=== PATIENT | male | born 1935 | race Caucasian/White ===

== ENCOUNTER → 2016-06-29 | Outpatient (CLI) | payer OTHER ==
[~2016-06-29] MED LIST: ACETAMINOPHEN-1 EAC1 PO; ACETAMINOPHEN325 M1 PO; ADVAIR 500/501 DISK IH; ADVIL200 MG PO; ALBUTEROL SULF8.5 GM IH; ALLI60 MG PO; ALLOPURINOL300 MG PO; AMLODIPINE BESYL5 MG PO; AQUAPHOR W-NAT50 GM TP; ASCORBIC ACID500 M3 PO; ASPIR 8181 M1 PO; ATORVASTATIN CA80 MG PO; BIOTENE MOISTUR45 ML PO; BUMETANIDE1 M1 PO; BUMETANIDE1 MG PO; BUMETANIDE2 MG PO; CALCITRIOL0.25 MCG PO; CALCIUM MAG PO; CALCIUM MAGNES1 EAC1 PO; CARDIZEM60 MG PO; CATAPRES0.1 MG PO; CENTRUM COMPLE1 EACH PO; CENTRUM SILVER1 EAC3 PO; CLONIDINE HCL0.1 MG PO; CLOPIDOGREL75 MG PO; COZAAR50 MG PO; CYANOCOBALAM1000 MCG PO; DETROL LA4 MG PO; DILAUDID2 MG PO; DOXAZOSIN MESYLA2 MG PO; DOXAZOSIN MESYLA4 MG PO; ELIQUIS5 MG PO; ENOXAPARIN100 MG/1 M SC; ERGOCALCIF50000 UNIT PO; FERROUS SULFAT325 MG PO; FINASTERIDE5 MG PO; FLOMAX0.4 MG PO; FLONASE16 G1 BOTH NARES; FOLIC ACID1 MG PO; HECTOROL0.5 MCG PO; HECTOROL1 MCG PO; HEPARIN SO5000 UNITS SC; HUMALOG100 UNIT/2 SC; HYDROMORPHONE HC2 MG PO; HYDROMORPHONE HC4 MG PO; Hytrin PO; IMODIUM MS REL1 EACH PO; IRON45 MG PO; JANUVIA25 M1 PO; Januvia PO; KLOR-CON 1010 ME1 PO; LANTUS 10100 UNITS/ SC; LANTUS 3 M100 UNITS/ SC; LASIX40 MG PO; LEVAQUIN500 MG PO; LIDOCAINE700 MG TD; LIPITOR80 MG PO; LISINOPRIL20 MG PO; LISINOPRIL40 MG PO; LISINOPRIL5 MG PO; LOSARTAN POTAS100 MG PO; LOSARTAN POTASS50 MG PO; LOVENOX120 MG/0.8 SC; LYRICA50 MG PO; MAG-OXIDE400 MG PO; METAXALONE800 MG PO; METOPROLOL SUCC25 MG PO; METOPROLOL SUCC50 MG PO; METOZOLV ODT5 MG PO; MIRTAZAPINE15 MG PO; MONTELUKAST SOD10 MG PO; NEXIUM20 MG PO; NEXIUM40 MG PO; NOVOLOG PE100 UNITS/ SC; NOVOLOG100 UNIT/3 SQ; PACERONE200 M1 PO; PANCREAZE 10,51 EACH PO; PANTOPRAZOLE SO40 MG PO; PROSCAR5 MG PO; PROTONIX40 MG PO; QUESTRAN PACKET4 GM PO; REGLAN5 MG PO; RHINOCORT AQUA8.6 G1 NS; SERTRALINE HCL25 MG PO; SINGULAIR10 MG PO; SSD25GM TP; Skelaxin PO; TAMSULOSIN HCL0.4 MG PO; TERAZOSIN HCL5 MG PO; THEO-24200 MG PO; THEO-DUR,THEOC200 MG PO; TRAMADOL HCL50 MG PO; Tylenol Regular Stre PO; VESICARE5 MG PO; VITAMIN A8000 UNIT PO; VITAMIN D250000 UNIT PO; WARFARIN SODIUM2 MG PO; WARFARIN SODIUM5 MG PO; ZESTRIL,PRINIVI40 M1 PO; ZESTRIL,PRINIVI40 MG PO; ZOLOFT25 MG PO; ZOLOFT50 M1 PO; ZOLOFT50 MG PO; ZYLOPRIM150 MG PO; Zoloft PO; [UNRECOGNIZED DRUG - CODE] IV
== END | disposition home or self-care (01) ==
DX: R13.10 Dysphagia, unspecified (principal); R06.02 Shortness of breath
CPT/HCPCS: 92611 GN; G8996 GN; G8997 GN; G8998 GN

== ENCOUNTER → 2016-10-05 | Outpatient (CLI) | payer OTHER ==
[~2016-10-05] VITALS: Ht 162.6 cm; Wt 90.7 kg
[~2016-10-05] MED LIST changes: +BUMEX2 MG PO; +NORVASC2.5 MG PO; +PLAVIX75 MG PO; +PROAIR RESPICL90 MCG IH; +REGLAN10 MG PO; +TOPROL XL50 MG PO; +VITAMIN C500 M1 PO; +ZESTRIL5 MG PO
[2016-10-05 12:02] LABS: ANION GAP 9 MEQ/L (2-14); CHLORIDE 106 MEQ/L (99-109); POTASSIUM 4.8 MEQ/L (3.7-5.4); SAMPLE HEMOLYSIS CHECK 0; SAMPLE ICTERIC CHECK 0; SAMPLE LIPEMIA CHECK 0; SODIUM 141 MEQ/L (136-147)
[2016-10-05 12:03] LABS: HEMATOCRIT 37.4 % (38.0-50.0); MCV 90.8 FL (86-99)
[2016-10-05 12:07] LABS: GFR ESTIMATE (CALCULATED) 28 mL/min/; GLUCOSE 149 mg/dL (70-99); UREA NITROGEN (BUN) 45 mg/dL (9-23)
== END | disposition home or self-care (01) ==
LOC: AMB 10:57
PROVIDERS: Anesthesiology
PROC: 0DB38ZX Excision of Lower Esophagus, Via Natural or Artificial Opening Endoscopic, Diagnostic (ICD-10-PCS; principal; 2016-10-05)
DX: K44.9 Diaphragmatic hernia without obstruction or gangrene (principal); R13.12 Dysphagia, oropharyngeal phase; Z79.01 Long term (current) use of anticoagulants; I25.10 Atherosclerotic heart disease of native coronary artery without angina pectoris; K21.9 Gastro-esophageal reflux disease without esophagitis; J44.9 Chronic obstructive pulmonary disease, unspecified; I10 Essential (primary) hypertension; E11.9 Type 2 diabetes mellitus without complications; E66.9 Obesity, unspecified; G47.33 Obstructive sleep apnea (adult) (pediatric); J45.909 Unspecified asthma, uncomplicated; Z79.82 Long term (current) use of aspirin; Z96.653 Presence of artificial knee joint, bilateral; Z99.81 Dependence on supplemental oxygen; Z68.34 Body mass index [BMI] 34.0-34.9, adult
CPT/HCPCS: 80048; 85014; 85018; 88305; 93005; J0360; J2405

== ENCOUNTER 2016-10-18 06:33 | Emergency (ER) | payer OTHER ==
[~2016-10-18] VITALS: Ht 162.6 cm; Wt 95.6 kg
[2016-10-18 07:27] LABS: HEMATOCRIT 36.5 % (38.0-50.0); MCHC 32.1 G/DL (30.0-36.0); MCV 90.3 FL (86-99); MEAN PLAT.VOLUME 10.3 uM^3 (9.0-12.4); PLATELET COUNT 185 K/uL (156-360); RBC DIS.WIDTH-CV 13.4 % (11.8-14.6); RED BLOOD COUNT 4.04 M/uL (4.00-5.50); WHITE BLOOD COUNT 7.2 K/uL (4.1-10.2)
[2016-10-18 07:45] LABS: CHLORIDE 108 mEq/L (99-109); POTASSIUM 5.4 mEq/L (3.7-5.4); SODIUM 141 mEq/L (136-147)
[2016-10-18 07:47] LABS: GLUCOSE 127 mg/dL (70-99)
[2016-10-18 07:48] LABS: ANION GAP 7 MEQ/L (2-14)
[2016-10-18 07:49] LABS: TOTAL BILIRUBIN 0.4 mg/dL (0.0-1.0)
[2016-10-18 07:50] LABS: ALKALINE PHOSPHATASE 83 IU/L (3-129)
[2016-10-18 07:51] LABS: GFR ESTIMATE (CALCULATED) 28 mL/min/
[2016-10-18 07:52] LABS: UREA NITROGEN (BUN) 46 mg/dL (9-23)
[2016-10-18 09:02] LABS: ADD MIUA? YES; BILIRUBIN NEGATIVE; BLOOD NEGATIVE; COLOR STRAW ((YELLOW)); GLUCOSE (STRIP) NEGATIVE; KETONES NEGATIVE; LEUKOCYTES NEGATIVE; NITRITE NEGATIVE; PROTEIN (STRIP) 100; SPECIFIC GRAVITY 1.009 (1.000-1.030); UROBILINOGEN 0.2 MG/DL (0.2-1.0)
[2016-10-18 09:12] LABS: BACTERIA NONE SEEN /HPF; EPITHELIAL CELLS RARE /HPF; HYALINE CASTS 0-5 /LPF; MUCUS NONE SEEN /LPF; RED BLOOD CELLS 0-5 /HPF (0-5); UCUL ADDED? NO; WHITE BLOOD CELLS 0-5 /HPF (0-5)
[2016-10-18 11:02] VITALS: BP 161/88
== END 2016-10-18 11:02 | disposition home or self-care (01) ==
LOC: EME 06:33
DX: K43.9 Ventral hernia without obstruction or gangrene (principal); J45.909 Unspecified asthma, uncomplicated; E11.9 Type 2 diabetes mellitus without complications; E78.5 Hyperlipidemia, unspecified; Z87.442 Personal history of urinary calculi; I25.2 Old myocardial infarction; Z98.61 Coronary angioplasty status
CPT/HCPCS: 74176; 74177; 80053; 81003; 85027; J7030

== ENCOUNTER 2017-07-25 10:12 | Inpatient (IN) | payer OTHER ==
[~2017-07-25] VITALS: Ht 162.6 cm; Wt 99.8 kg
[~2017-07-25 10:12] MED LIST changes: +PROAIR HFA8.5 GM IH; -PROAIR RESPICL90 MCG IH
[2017-07-25 10:40] LABS: BASOPHIL (%) 0.3 % (0-1); EOSINOPHIL (%) 2.5 % (0-5); EOSINOPHIL COUNT 0.3 K/uL (0-0.3); HEMOGLOBIN 12.5 G/DL (12.5-16.6); IMMATURE GRANULOCYTE (%) 0.3 % (0.0-0.7); LYMPHOCYTE (%) 18.8 % (15-42); LYMPHOCYTE COUNT 2.6 K/uL (1.0-2.8); MCHC 32.1 G/DL (30.0-36.0); MCV 90.5 FL (86-99); MONOCYTE (%) 7.1 % (3-12); NEUTROPHIL COUNT 9.7 K/uL (1.8-6.4); PLATELET COUNT 189 K/uL (156-360); RBC DIS.WIDTH-CV 13.5 % (11.8-14.6); RBC DIS.WIDTH-SD 45.3 % (39-53); RED BLOOD COUNT 4.31 M/uL (4.00-5.50); WHITE BLOOD COUNT 13.6 K/uL (4.1-10.2)
[2017-07-25 11:07] LABS: TROP-I INTERPRETATION NEGATIVE; TROPONIN-I 0.04 ng/mL (0.0-0.30)
[2017-07-25 11:13] LABS: CHLORIDE 108 mEq/L (99-109); POTASSIUM 4.4 mEq/L (3.7-5.4); SODIUM 142 mEq/L (136-147)
[2017-07-25 11:14] LABS: GLUCOSE 85 mg/dL (70-99)
[2017-07-25 11:18] LABS: CREATININE 2.4 mg/dL (0.6-1.3); GFR ESTIMATE (CALCULATED) 28 mL/min/ (58.99-99999)
[2017-07-25 11:19] LABS: UREA NITROGEN (BUN) 33 mg/dL (9-23)
[2017-07-25] MEDS ORDERED: CALCITRIOL0.25 MCG PO (13:55)
[2017-07-25] MEDS ORDERED: LANTUS 10100 UNITS/ SC (13:56)
[2017-07-25] MEDS ORDERED: ASPIR-LOW81 MG PO (13:56)
[2017-07-25 15:25] VITALS: BP 206/96
[2017-07-25 15:33] VITALS: BP 206/96
[2017-07-25 17:46] LABS: TROP-I INTERPRETATION NEGATIVE; TROPONIN-I 0.06 ng/mL (0.0-0.30)
[2017-07-25 19:47] VITALS: BP 152/57
[2017-07-25 23:36] LABS: TROP-I INTERPRETATION NEGATIVE; TROPONIN-I 0.04 ng/mL (0.0-0.30)
[2017-07-26 00:11] VITALS: BP 166/67
[2017-07-26 04:49] VITALS: BP 174/72
[2017-07-26 06:27] LABS: ALKALINE PHOSPHATASE 70 IU/L (3-129); ALT (GPT) 8 IU/L (3-49); AST (GOT) 10 IU/L (2-34); CHLORIDE 104 MEQ/L (99-109); CREATININE 2.8 MG/DL (0.6-1.3); GFR ESTIMATE (CALCULATED) 23 mL/min/ (58.99-99999); POTASSIUM 4.3 MEQ/L (3.7-5.4); SODIUM 140 MEQ/L (136-147); TOTAL BILIRUBIN 0.4 MG/DL (0.0-1.0); TOTAL PROTEIN 5.6 G/DL (6.4-8.3); UREA NITROGEN (BUN) 39 mg/dL (9-23)
[2017-07-26 06:28] LABS: GLUCOSE 202 mg/dL (70-99)
[2017-07-26 07:45] VITALS: BP 182/72
[2017-07-26 09:24] LABS: TROP-I INTERPRETATION NEGATIVE; TROPONIN-I 0.03 ng/mL (0.0-0.30)
[2017-07-26 09:25] LABS: BASOPHIL (%) 0.1 % (0-1); EOSINOPHIL (%) 0 % (0-5); HEMATOCRIT 36.7 % (38.0-50.0); HEMOGLOBIN 11.9 G/DL (12.5-16.6); IMMATURE GRANULOCYTE (%) 0.5 % (0.0-0.7); LYMPHOCYTE (%) 6.4 % (15-42); LYMPHOCYTE COUNT 1.1 K/uL (1.0-2.8); MCH 28.7 PG (29.0-34.0); MCHC 32.4 G/DL (30.0-36.0); MCV 88.6 FL (86-99); MONOCYTE (%) 1.6 % (3-12); MONOCYTE COUNT 0.3 K/uL (0-0.8); NEUTROPHIL (%) 91.4 % (45-76); NEUTROPHIL COUNT 15.7 K/uL (1.8-6.4); RBC DIS.WIDTH-CV 13.8 % (11.8-14.6); RED BLOOD COUNT 4.14 M/uL (4.00-5.50); WHITE BLOOD COUNT 17.2 K/uL (4.1-10.2)
[2017-07-26 09:27] LABS: PLATELET COUNT 266 K/uL (156-360)
[2017-07-26 12:39] LABS: HEMATOCRIT 36.3 % (38.0-50.0); HEMOGLOBIN 11.8 G/DL (12.5-16.6); MCV 88.8 FL (86-99)
[2017-07-26 12:41] VITALS: BP 168/62
[2017-07-26 16:00] VITALS: BP 142/62
[2017-07-26 20:07] VITALS: BP 179/75
[2017-07-27] VITALS (7 sets, daily range): BP systolic 134–190; BP diastolic 59–86
[2017-07-27 08:48] LABS: HEMATOCRIT 36.8 % (38.0-50.0); HEMOGLOBIN 11.7 G/DL (12.5-16.6); MCH 28.8 PG (29.0-34.0); MCHC 31.8 G/DL (30.0-36.0); MCV 90.6 FL (86-99); PLATELET COUNT 231 K/uL (156-360); RBC DIS.WIDTH-CV 14.3 % (11.8-14.6); RBC DIS.WIDTH-SD 47.8 % (39-53); RED BLOOD COUNT 4.06 M/uL (4.00-5.50); WHITE BLOOD COUNT 19.9 K/uL (4.1-10.2)
[2017-07-27 09:16] LABS: CHLORIDE 101 MEQ/L (99-109); CREATININE 3.2 MG/DL (0.6-1.3); GFR ESTIMATE (CALCULATED) 20 mL/min/ (58.99-99999); GLUCOSE 223 mg/dL (70-99); POTASSIUM 4.4 MEQ/L (3.7-5.4); SODIUM 140 MEQ/L (136-147); UREA NITROGEN (BUN) 54 mg/dL (9-23)
[2017-07-27 10:26] LABS: TROP-I INTERPRETATION NEGATIVE; TROPONIN-I 0.05 ng/mL (0.0-0.30)
[2017-07-28] VITALS (8 sets, daily range): BP systolic 142–189; BP diastolic 7–78
[2017-07-28 05:51] LABS: HEMATOCRIT 36.1 % (38.0-50.0); HEMOGLOBIN 11.2 G/DL (12.5-16.6); MCV 90.3 FL (86-99); PLATELET COUNT 234 K/uL (156-360); RBC DIS.WIDTH-CV 14.2 % (11.8-14.6); WHITE BLOOD COUNT 19.5 K/uL (4.1-10.2)
[2017-07-28 06:57] LABS: CHLORIDE 101 MEQ/L (99-109); CREATININE 3.4 MG/DL (0.6-1.3); GFR ESTIMATE (CALCULATED) 19 mL/min/ (58.99-99999); GLUCOSE 188 mg/dL (70-99); MAGNESIUM 2.1 mg/dl (1.3-2.7); PHOSPHORUS 4.7 mg/dL (2.5-4.9); SODIUM 139 MEQ/L (136-147); UREA NITROGEN (BUN) 60 mg/dL (9-23)
[2017-07-28 06:58] LABS: POTASSIUM 5.3 MEQ/L (3.7-5.4)
[2017-07-29 04:00] VITALS: BP 150/58
[2017-07-29 05:36] LABS: BASOPHIL (%) 0.1 % (0-1); EOSINOPHIL (%) 0 % (0-5); HEMATOCRIT 33.1 % (38.0-50.0); HEMOGLOBIN 10.6 G/DL (12.5-16.6); IMMATURE GRANULOCYTE (%) 1.1 % (0.0-0.7); LYMPHOCYTE (%) 7.8 % (15-42); MCH 28.6 PG (29.0-34.0); MCV 89.5 FL (86-99); MONOCYTE (%) 8.6 % (3-12); MONOCYTE COUNT 1.1 K/uL (0-0.8); NEUTROPHIL (%) 82.4 % (45-76); PLATELET COUNT 211 K/uL (156-360); RBC DIS.WIDTH-CV 14.2 % (11.8-14.6); RBC DIS.WIDTH-SD 46.5 % (39-53); WHITE BLOOD COUNT 13.3 K/uL (4.1-10.2)
[2017-07-29 06:10] LABS: CHLORIDE 104 MEQ/L (99-109); CREATININE 3.3 MG/DL (0.6-1.3); GFR ESTIMATE (CALCULATED) 19 mL/min/ (58.99-99999); GLUCOSE 145 mg/dL (70-99); SODIUM 141 MEQ/L (136-147); UREA NITROGEN (BUN) 69 mg/dL (9-23)
[2017-07-29 10:05] VITALS: BP 162/65
[2017-07-29 16:04] VITALS: BP 157/66
[2017-07-29 20:21] VITALS: BP 177/79
[2017-07-29 22:19] VITALS: BP 152/66
[2017-07-30] VITALS (7 sets, daily range): BP systolic 157–192; BP diastolic 70–99
[2017-07-30 05:20] LABS: HEMATOCRIT 33.4 % (38.0-50.0); HEMOGLOBIN 10.5 G/DL (12.5-16.6); MCH 28.1 PG (29.0-34.0); MCHC 31.4 G/DL (30.0-36.0); MCV 89.3 FL (86-99); PLATELET COUNT 208 K/uL (156-360); RBC DIS.WIDTH-CV 14.1 % (11.8-14.6); RBC DIS.WIDTH-SD 46.4 % (39-53); RED BLOOD COUNT 3.74 M/uL (4.00-5.50); WHITE BLOOD COUNT 10.6 K/uL (4.1-10.2)
[2017-07-30 05:23] LABS: APPEARANCE CLEAR ((CLEAR)); BILIRUBIN NEGATIVE; BLOOD NEGATIVE; COLOR YELLOW ((YELLOW)); GLUCOSE (STRIP) 50; KETONES NEGATIVE; LEUKOCYTES NEGATIVE; NITRITE NEGATIVE; PROTEIN (STRIP) 100; SPECIFIC GRAVITY 1.013 (1.000-1.030); UROBILINOGEN 0.2 MG/DL (0.2-1.0)
[2017-07-30 05:25] LABS: UR CREATININE CONCENTRATION 82.5 MG/DL
[2017-07-30 05:43] LABS: BACTERIA NONE SEEN /HPF; EPITHELIAL CELLS RARE /HPF; MUCUS TRACE /LPF; RED BLOOD CELLS 0-5 /HPF (0-5); WHITE BLOOD CELLS 0-5 /HPF (0-5)
[2017-07-30 05:47] LABS: CHLORIDE 106 MEQ/L (99-109); CREATININE 3.2 MG/DL (0.6-1.3); GFR ESTIMATE (CALCULATED) 20 mL/min/ (58.99-99999); SODIUM 144 MEQ/L (136-147); UREA NITROGEN (BUN) 70 mg/dL (9-23)
[2017-07-30 05:48] LABS: GLUCOSE 77 mg/dL (70-99)
[2017-07-31 02:38] VITALS: BP 147/66
[2017-07-31 05:55] LABS: BASOPHIL (%) 0.1 % (0-1); EOSINOPHIL (%) 4.3 % (0-5); EOSINOPHIL COUNT 0.4 K/uL (0-0.3); HEMATOCRIT 33.5 % (38.0-50.0); HEMOGLOBIN 10.5 G/DL (12.5-16.6); IMMATURE GRANULOCYTE (%) 0.7 % (0.0-0.7); LYMPHOCYTE (%) 11.8 % (15-42); MCH 28.5 PG (29.0-34.0); MCHC 31.3 G/DL (30.0-36.0); MCV 90.8 FL (86-99); MONOCYTE (%) 7.9 % (3-12); MONOCYTE COUNT 0.7 K/uL (0-0.8); NEUTROPHIL (%) 75.2 % (45-76); NEUTROPHIL COUNT 6.7 K/uL (1.8-6.4); PLATELET COUNT 202 K/uL (156-360); RBC DIS.WIDTH-CV 14.1 % (11.8-14.6); RBC DIS.WIDTH-SD 46.8 % (39-53); RED BLOOD COUNT 3.69 M/uL (4.00-5.50); WHITE BLOOD COUNT 8.8 K/uL (4.1-10.2)
[2017-07-31 06:40] LABS: CHLORIDE 108 MEQ/L (99-109); CREATININE 3.1 MG/DL (0.6-1.3); GFR ESTIMATE (CALCULATED) 21 mL/min/ (58.99-99999); POTASSIUM 4.3 MEQ/L (3.7-5.4); SODIUM 143 MEQ/L (136-147); UREA NITROGEN (BUN) 67 mg/dL (9-23)
[2017-07-31 06:43] LABS: GLUCOSE 145 mg/dL (70-99)
[2017-07-31 08:00] VITALS: BP 166/70
[2017-07-31 16:00] VITALS: BP 183/74
[2017-07-31 16:30] VITALS: BP 168/72
[2017-07-31 20:34] VITALS: BP 192/82
[2017-07-31 22:00] VITALS: BP 159/69
[2017-08-01] VITALS (8 sets, daily range): BP systolic 153–194; BP diastolic 67–79
[2017-08-01 05:59] LABS: BASOPHIL (%) 0.2 % (0-1); EOSINOPHIL (%) 5.3 % (0-5); EOSINOPHIL COUNT 0.5 K/uL (0-0.3); HEMATOCRIT 33.7 % (38.0-50.0); HEMOGLOBIN 10.6 G/DL (12.5-16.6); IMMATURE GRANULOCYTE (%) 1.1 % (0.0-0.7); LYMPHOCYTE (%) 10.4 % (15-42); LYMPHOCYTE COUNT 1.1 K/uL (1.0-2.8); MCH 28.6 PG (29.0-34.0); MCHC 31.5 G/DL (30.0-36.0); MCV 91.1 FL (86-99); MONOCYTE (%) 8.2 % (3-12); MONOCYTE COUNT 0.8 K/uL (0-0.8); NEUTROPHIL (%) 74.8 % (45-76); NEUTROPHIL COUNT 7.7 K/uL (1.8-6.4); PLATELET COUNT 184 K/uL (156-360); RBC DIS.WIDTH-CV 14.2 % (11.8-14.6); RBC DIS.WIDTH-SD 47.8 % (39-53); WHITE BLOOD COUNT 10.2 K/uL (4.1-10.2)
[2017-08-01 06:14] LABS: CHLORIDE 105 MEQ/L (99-109); CREATININE 3.1 MG/DL (0.6-1.3); GFR ESTIMATE (CALCULATED) 21 mL/min/ (58.99-99999); GLUCOSE 140 mg/dL (70-99); POTASSIUM 4.4 MEQ/L (3.7-5.4); SODIUM 140 MEQ/L (136-147); UREA NITROGEN (BUN) 65 mg/dL (9-23)
[2017-08-02 00:08] VITALS: BP 157/71
[2017-08-02 05:09] VITALS: BP 189/85
[2017-08-02 05:45] LABS: BASOPHIL (%) 0.1 % (0-1); EOSINOPHIL (%) 5.4 % (0-5); EOSINOPHIL COUNT 0.5 K/uL (0-0.3); HEMATOCRIT 31.8 % (38.0-50.0); HEMOGLOBIN 10.2 G/DL (12.5-16.6); IMMATURE GRANULOCYTE (%) 0.9 % (0.0-0.7); LYMPHOCYTE (%) 11.2 % (15-42); LYMPHOCYTE COUNT 1.1 K/uL (1.0-2.8); MCHC 32.1 G/DL (30.0-36.0); MCV 90.3 FL (86-99); MONOCYTE (%) 7.5 % (3-12); MONOCYTE COUNT 0.7 K/uL (0-0.8); NEUTROPHIL (%) 74.9 % (45-76); NEUTROPHIL COUNT 7.4 K/uL (1.8-6.4); PLATELET COUNT 163 K/uL (156-360); RBC DIS.WIDTH-CV 14.2 % (11.8-14.6); RBC DIS.WIDTH-SD 46.9 % (39-53); RED BLOOD COUNT 3.52 M/uL (4.00-5.50); WHITE BLOOD COUNT 9.9 K/uL (4.1-10.2)
[2017-08-02 06:07] LABS: CHLORIDE 106 MEQ/L (99-109); CREATININE 2.9 MG/DL (0.6-1.3); GFR ESTIMATE (CALCULATED) 22 mL/min/ (58.99-99999); GLUCOSE 171 mg/dL (70-99); POTASSIUM 4.6 MEQ/L (3.7-5.4); SODIUM 141 MEQ/L (136-147); UREA NITROGEN (BUN) 63 mg/dL (9-23)
[2017-08-02 08:15] VITALS: BP 167/73
[2017-08-02 17:56] VITALS: BP 135/70
[2017-08-03 00:35] VITALS: BP 165/74
[2017-08-03 07:10] LABS: BASOPHIL (%) 0.1 % (0-1); EOSINOPHIL (%) 5.3 % (0-5); EOSINOPHIL COUNT 0.5 K/uL (0-0.3); HEMATOCRIT 31.1 % (38.0-50.0); HEMOGLOBIN 9.8 G/DL (12.5-16.6); IMMATURE GRANULOCYTE (%) 0.9 % (0.0-0.7); LYMPHOCYTE (%) 13.8 % (15-42); LYMPHOCYTE COUNT 1.2 K/uL (1.0-2.8); MCH 28.7 PG (29.0-34.0); MCHC 31.5 G/DL (30.0-36.0); MCV 91.2 FL (86-99); MONOCYTE (%) 8.5 % (3-12); MONOCYTE COUNT 0.7 K/uL (0-0.8); NEUTROPHIL (%) 71.4 % (45-76); NEUTROPHIL COUNT 6.1 K/uL (1.8-6.4); PLATELET COUNT 152 K/uL (156-360); RBC DIS.WIDTH-CV 14.2 % (11.8-14.6); RBC DIS.WIDTH-SD 47.5 % (39-53); RED BLOOD COUNT 3.41 M/uL (4.00-5.50); WHITE BLOOD COUNT 8.5 K/uL (4.1-10.2)
[2017-08-03 07:37] LABS: CHLORIDE 104 MEQ/L (99-109); CREATININE 2.9 MG/DL (0.6-1.3); GFR ESTIMATE (CALCULATED) 22 mL/min/ (58.99-99999); GLUCOSE 149 mg/dL (70-99); POTASSIUM 4.4 MEQ/L (3.7-5.4); SODIUM 138 MEQ/L (136-147); UREA NITROGEN (BUN) 60 mg/dL (9-23)
[2017-08-03 07:44] VITALS: BP 193/80
[2017-08-03 08:15] VITALS: BP 142/70
[2017-08-03 11:15] VITALS: BP 138/70
[2017-08-03 15:48] VITALS: BP 174/74
[2017-08-03 18:06] LABS: HEMATOCRIT 33.4 % (38.0-50.0); HEMOGLOBIN 10.6 G/DL (12.5-16.6)
[2017-08-03 23:17] VITALS: BP 118/63
[2017-08-04 06:34] LABS: HEMOGLOBIN 9.5 G/DL (12.5-16.6); MCV 90.6 FL (86-99)
[2017-08-04 07:19] LABS: CHLORIDE 105 MEQ/L (99-109); GFR ESTIMATE (CALCULATED) 21 mL/min/ (58.99-99999); POTASSIUM 4.4 MEQ/L (3.7-5.4); SODIUM 140 MEQ/L (136-147); UREA NITROGEN (BUN) 56 mg/dL (9-23)
[2017-08-04 07:23] LABS: GLUCOSE 102 mg/dL (70-99)
[2017-08-04 08:00] VITALS: BP 149/65
[2017-08-04 15:40] VITALS: BP 108/71
[2017-08-04 17:41] LABS: HEMATOCRIT 33.4 % (38.0-50.0); HEMOGLOBIN 10.4 G/DL (12.5-16.6); MCV 92.3 FL (86-99)
[2017-08-04 18:00] LABS: CHLORIDE 105 MEQ/L (99-109); MAGNESIUM 1.9 mg/dl (1.3-2.7); POTASSIUM 4.5 MEQ/L (3.7-5.4); SODIUM 139 MEQ/L (136-147)
[2017-08-04 18:05] LABS: CREATININE 2.8 MG/DL (0.6-1.3); GFR ESTIMATE (CALCULATED) 23 mL/min/ (58.99-99999); UREA NITROGEN (BUN) 53 mg/dL (9-23)
[2017-08-04 18:06] LABS: GLUCOSE 188 mg/dL (70-99)
[2017-08-04 19:05] VITALS: BP 112/58
[2017-08-05] VITALS (9 sets, daily range): BP systolic 91–141; BP diastolic 42–89
[2017-08-05 05:27] LABS: BASOPHIL (%) 0.1 % (0-1); EOSINOPHIL (%) 2.9 % (0-5); EOSINOPHIL COUNT 0.2 K/uL (0-0.3); IMMATURE GRANULOCYTE (%) 0.8 % (0.0-0.7); LYMPHOCYTE (%) 12.7 % (15-42); MCH 28.7 PG (29.0-34.0); MCHC 31.3 G/DL (30.0-36.0); MCV 91.7 FL (86-99); MONOCYTE (%) 8.9 % (3-12); MONOCYTE COUNT 0.7 K/uL (0-0.8); NEUTROPHIL (%) 74.6 % (45-76); NEUTROPHIL COUNT 5.7 K/uL (1.8-6.4); PLATELET COUNT 139 K/uL (156-360); RBC DIS.WIDTH-CV 14.4 % (11.8-14.6); RBC DIS.WIDTH-SD 48.5 % (39-53); RED BLOOD COUNT 3.49 M/uL (4.00-5.50); WHITE BLOOD COUNT 7.6 K/uL (4.1-10.2)
[2017-08-05 06:02] LABS: CHLORIDE 105 MEQ/L (99-109); CREATININE 3.1 MG/DL (0.6-1.3); GFR ESTIMATE (CALCULATED) 21 mL/min/ (58.99-99999); GLUCOSE 156 mg/dL (70-99); MAGNESIUM 1.9 mg/dl (1.3-2.7); POTASSIUM 4.5 MEQ/L (3.7-5.4); SODIUM 137 MEQ/L (136-147); UREA NITROGEN (BUN) 53 mg/dL (9-23)
[2017-08-05 18:10] LABS: HEMATOCRIT 30.9 % (38.0-50.0); HEMOGLOBIN 9.7 G/DL (12.5-16.6); MCV 90.1 FL (86-99)
[2017-08-06] VITALS (7 sets, daily range): BP systolic 110–137; BP diastolic 56–74
[2017-08-06 06:17] LABS: BASOPHIL (%) 0.1 % (0-1); EOSINOPHIL (%) 1.9 % (0-5); EOSINOPHIL COUNT 0.2 K/uL (0-0.3); HEMATOCRIT 30.6 % (38.0-50.0); HEMOGLOBIN 9.6 G/DL (12.5-16.6); IMMATURE GRANULOCYTE (%) 0.7 % (0.0-0.7); LYMPHOCYTE (%) 8.6 % (15-42); LYMPHOCYTE COUNT 0.7 K/uL (1.0-2.8); MCH 28.2 PG (29.0-34.0); MCHC 31.4 G/DL (30.0-36.0); MONOCYTE (%) 6.3 % (3-12); MONOCYTE COUNT 0.5 K/uL (0-0.8); NEUTROPHIL (%) 82.4 % (45-76); PLATELET COUNT 138 K/uL (156-360); RBC DIS.WIDTH-CV 14.2 % (11.8-14.6); RBC DIS.WIDTH-SD 46.8 % (39-53); WHITE BLOOD COUNT 8.5 K/uL (4.1-10.2)
[2017-08-06 06:42] LABS: CHLORIDE 103 MEQ/L (99-109); GFR ESTIMATE (CALCULATED) 17 mL/min/ (58.99-99999); GLUCOSE 173 mg/dL (70-99); POTASSIUM 4.6 MEQ/L (3.7-5.4); SODIUM 135 MEQ/L (136-147); UREA NITROGEN (BUN) 53 mg/dL (9-23)
[2017-08-06 06:44] LABS: CREATININE 3.7 MG/DL (0.6-1.3)
[2017-08-06 09:38] LABS: ALBUMIN 2.7 G/DL (3.2-4.8); ALKALINE PHOSPHATASE 61 IU/L (3-129); ALT (GPT) 8 IU/L (3-49); AST (GOT) 10 IU/L (2-34); DIRECT BILIRUBIN 0.1 mg/dL (0.0-0.3); LIPASE 39 U/L (1.0-51.0); TOTAL BILIRUBIN 0.3 MG/DL (0.0-1.0); TOTAL PROTEIN 4.4 G/DL (6.4-8.3)
[2017-08-06 10:07] LABS: TROP-I INTERPRETATION POSITIVE; TROPONIN-I 0.61 ng/mL (0.0-0.30)
[2017-08-06 18:34] LABS: HEMATOCRIT 32.8 % (38.0-50.0); HEMOGLOBIN 10.3 G/DL (12.5-16.6); MCV 91.1 FL (86-99)
[2017-08-07 03:46] VITALS: BP 111/58
[2017-08-07 05:58] LABS: BASOPHIL (%) 0.3 % (0-1); EOSINOPHIL COUNT 0.2 K/uL (0-0.3); HEMOGLOBIN 9.8 G/DL (12.5-16.6); IMMATURE GRANULOCYTE (%) 0.6 % (0.0-0.7); LYMPHOCYTE (%) 14.3 % (15-42); MCH 28.3 PG (29.0-34.0); MCHC 31.6 G/DL (30.0-36.0); MCV 89.6 FL (86-99); MONOCYTE COUNT 0.5 K/uL (0-0.8); NEUTROPHIL (%) 74.8 % (45-76); PLATELET COUNT 151 K/uL (156-360); RBC DIS.WIDTH-CV 14.4 % (11.8-14.6); RBC DIS.WIDTH-SD 46.7 % (39-53); RED BLOOD COUNT 3.46 M/uL (4.00-5.50); WHITE BLOOD COUNT 6.7 K/uL (4.1-10.2)
[2017-08-07 06:09] LABS: CHLORIDE 101 MEQ/L (99-109); GFR ESTIMATE (CALCULATED) 15 mL/min/ (58.99-99999); GLUCOSE 139 mg/dL (70-99); MAGNESIUM 1.9 mg/dl (1.3-2.7); PHOSPHORUS 5.2 mg/dL (2.5-4.9); POTASSIUM 4.6 MEQ/L (3.7-5.4); SODIUM 134 MEQ/L (136-147); UREA NITROGEN (BUN) 55 mg/dL (9-23)
[2017-08-07 08:02] VITALS: BP 107/75
[2017-08-07 11:20] LABS: HEPATITIS B SURFACE ANTIGEN Nonreactive; HEPATITIS C ANTIBODY Nonreactive
[2017-08-07 11:21] LABS: ANTI-HEPATITIS A VIRUS (IGM) Nonreactive
[2017-08-07 11:22] LABS: ANTI-HEPATITIS B CORE (IGM) Nonreactive
[2017-08-07 11:35] VITALS: BP 101/65
[2017-08-07 15:44] VITALS: BP 102/70
[2017-08-07 18:19] LABS: HEMATOCRIT 30.4 % (38.0-50.0); HEMOGLOBIN 9.8 G/DL (12.5-16.6); MCV 89.9 FL (86-99)
[2017-08-07 19:12] VITALS: BP 118/48
[2017-08-07 23:33] VITALS: BP 122/61
[2017-08-08 03:47] VITALS: BP 118/67
[2017-08-08 05:37] LABS: BASOPHIL (%) 0.1 % (0-1); EOSINOPHIL (%) 2.4 % (0-5); EOSINOPHIL COUNT 0.2 K/uL (0-0.3); HEMATOCRIT 29.7 % (38.0-50.0); HEMOGLOBIN 9.5 G/DL (12.5-16.6); IMMATURE GRANULOCYTE (%) 0.5 % (0.0-0.7); LYMPHOCYTE (%) 9.6 % (15-42); MCH 28.4 PG (29.0-34.0); MCV 88.9 FL (86-99); MONOCYTE (%) 6.6 % (3-12); MONOCYTE COUNT 0.7 K/uL (0-0.8); NEUTROPHIL (%) 80.8 % (45-76); NEUTROPHIL COUNT 8.2 K/uL (1.8-6.4); PLATELET COUNT 149 K/uL (156-360); RBC DIS.WIDTH-CV 14.3 % (11.8-14.6); RBC DIS.WIDTH-SD 46.7 % (39-53); RED BLOOD COUNT 3.34 M/uL (4.00-5.50); WHITE BLOOD COUNT 10.2 K/uL (4.1-10.2)
[2017-08-08 06:01] LABS: CHLORIDE 101 MEQ/L (99-109); CREATININE 4.2 MG/DL (0.6-1.3); GFR ESTIMATE (CALCULATED) 15 mL/min/ (58.99-99999); GLUCOSE 159 mg/dL (70-99); POTASSIUM 4.7 MEQ/L (3.7-5.4); SODIUM 132 MEQ/L (136-147); UREA NITROGEN (BUN) 64 mg/dL (9-23)
[2017-08-08 08:04] VITALS: BP 151/80
[2017-08-08 14:05] VITALS: BP 101/76
[2017-08-08 15:10] VITALS: BP 120/71
[2017-08-08 19:38] VITALS: BP 121/73
[2017-08-08 20:16] LABS: HEMATOCRIT 30.8 % (38.0-50.0); HEMOGLOBIN 10.1 G/DL (12.5-16.6); MCV 89.8 FL (86-99)
[2017-08-08 23:34] VITALS: BP 122/62
[2017-08-09 03:29] VITALS: BP 103/71
[2017-08-09 05:43] LABS: BASOPHIL (%) 0 % (0-1); EOSINOPHIL (%) 0 % (0-5); HEMATOCRIT 28.5 % (38.0-50.0); HEMOGLOBIN 9.1 G/DL (12.5-16.6); IMMATURE GRANULOCYTE (%) 0.8 % (0.0-0.7); LYMPHOCYTE (%) 5.3 % (15-42); LYMPHOCYTE COUNT 0.4 K/uL (1.0-2.8); MCH 28.4 PG (29.0-34.0); MCHC 31.9 G/DL (30.0-36.0); MCV 89.1 FL (86-99); MONOCYTE (%) 1.7 % (3-12); MONOCYTE COUNT 0.1 K/uL (0-0.8); NEUTROPHIL (%) 92.2 % (45-76); NEUTROPHIL COUNT 6.9 K/uL (1.8-6.4); PLATELET COUNT 160 K/uL (156-360); RBC DIS.WIDTH-CV 14.3 % (11.8-14.6); WHITE BLOOD COUNT 7.5 K/uL (4.1-10.2)
[2017-08-09 06:12] LABS: CHLORIDE 100 MEQ/L (99-109); CREATININE 4.5 MG/DL (0.6-1.3); GFR ESTIMATE (CALCULATED) 13 mL/min/ (58.99-99999); GLUCOSE 245 mg/dL (70-99); POTASSIUM 5.2 MEQ/L (3.7-5.4); SODIUM 130 MEQ/L (136-147); UREA NITROGEN (BUN) 71 mg/dL (9-23)
[2017-08-09 07:11] VITALS: BP 119/70
[2017-08-09 12:45] VITALS: BP 120/72
[2017-08-09 16:50] VITALS: BP 115/72
[2017-08-09 19:11] LABS: HEMATOCRIT 29.6 % (38.0-50.0); HEMOGLOBIN 9.6 G/DL (12.5-16.6); MCV 88.4 FL (86-99)
[2017-08-09 19:25] VITALS: BP 104/61
[2017-08-09 23:42] VITALS: BP 117/69
[2017-08-10] VITALS (7 sets, daily range): BP systolic 08–134; BP diastolic 52–78
[2017-08-10 06:24] LABS: BASOPHIL (%) 0.1 % (0-1); EOSINOPHIL (%) 0 % (0-5); HEMATOCRIT 29.1 % (38.0-50.0); HEMOGLOBIN 9.2 G/DL (12.5-16.6); IMMATURE GRANULOCYTE (%) 0.5 % (0.0-0.7); LYMPHOCYTE (%) 8.5 % (15-42); MCHC 31.6 G/DL (30.0-36.0); MCV 88.7 FL (86-99); MONOCYTE (%) 6.9 % (3-12); MONOCYTE COUNT 0.8 K/uL (0-0.8); NEUTROPHIL COUNT 9.9 K/uL (1.8-6.4); PLATELET COUNT 175 K/uL (156-360); RBC DIS.WIDTH-CV 14.6 % (11.8-14.6); RED BLOOD COUNT 3.28 M/uL (4.00-5.50); WHITE BLOOD COUNT 11.8 K/uL (4.1-10.2)
[2017-08-10 06:58] LABS: CHLORIDE 100 MEQ/L (99-109); GFR ESTIMATE (CALCULATED) 15 mL/min/ (58.99-99999); POTASSIUM 4.6 MEQ/L (3.7-5.4); SODIUM 134 MEQ/L (136-147); UREA NITROGEN (BUN) 51 mg/dL (9-23)
[2017-08-10 07:07] LABS: GLUCOSE 117 mg/dL (70-99)
[2017-08-10 19:03] LABS: HEMATOCRIT 26.7 % (38.0-50.0); HEMOGLOBIN 8.6 G/DL (12.5-16.6); MCV 88.1 FL (86-99)
[2017-08-11] VITALS (7 sets, daily range): BP systolic 99–154; BP diastolic 53–68
[2017-08-11 06:23] LABS: BASOPHIL (%) 0.2 % (0-1); EOSINOPHIL (%) 0.5 % (0-5); EOSINOPHIL COUNT 0.1 K/uL (0-0.3); HEMATOCRIT 29.1 % (38.0-50.0); HEMOGLOBIN 9.1 G/DL (12.5-16.6); IMMATURE GRANULOCYTE (%) 0.4 % (0.0-0.7); LYMPHOCYTE (%) 7.8 % (15-42); LYMPHOCYTE COUNT 0.8 K/uL (1.0-2.8); MCH 28.2 PG (29.0-34.0); MCHC 31.3 G/DL (30.0-36.0); MCV 90.1 FL (86-99); MONOCYTE (%) 8.1 % (3-12); MONOCYTE COUNT 0.8 K/uL (0-0.8); NEUTROPHIL COUNT 8.6 K/uL (1.8-6.4); PLATELET COUNT 143 K/uL (156-360); RBC DIS.WIDTH-CV 14.7 % (11.8-14.6); RBC DIS.WIDTH-SD 48.3 % (39-53); RED BLOOD COUNT 3.23 M/uL (4.00-5.50); WHITE BLOOD COUNT 10.3 K/uL (4.1-10.2)
[2017-08-11 06:56] LABS: CHLORIDE 102 MEQ/L (99-109); GFR ESTIMATE (CALCULATED) 19 mL/min/ (58.99-99999); GLUCOSE 135 mg/dL (70-99); POTASSIUM 4.2 MEQ/L (3.7-5.4); SODIUM 137 MEQ/L (136-147); UREA NITROGEN (BUN) 37 mg/dL (9-23)
[2017-08-11 07:00] LABS: CREATININE 3.3 MG/DL (0.6-1.3)
[2017-08-11 18:11] LABS: HEMATOCRIT 28.2 % (38.0-50.0); MCV 90.1 FL (86-99)
[2017-08-12 05:00] VITALS: BP 124/87
[2017-08-12 05:34] LABS: HEMATOCRIT 29.3 % (38.0-50.0); HEMOGLOBIN 9.1 G/DL (12.5-16.6)
[2017-08-12 09:24] VITALS: BP 132/68
[2017-08-12 10:49] LABS: CHLORIDE 99 MEQ/L (99-109); GFR ESTIMATE (CALCULATED) 15 mL/min/ (58.99-99999); GLUCOSE 222 mg/dL (70-99); SODIUM 135 MEQ/L (136-147); UREA NITROGEN (BUN) 51 mg/dL (9-23)
[2017-08-12 12:42] VITALS: BP 108/64
[2017-08-12 17:07] VITALS: BP 132/67
[2017-08-12 17:46] LABS: HEMATOCRIT 28.3 % (38.0-50.0); HEMOGLOBIN 8.8 G/DL (12.5-16.6); MCV 92.8 FL (86-99)
[2017-08-12 19:54] VITALS: BP 114/68
[2017-08-13] VITALS (8 sets, daily range): BP systolic 90–149; BP diastolic 55–83
[2017-08-13 05:35] LABS: BASOPHIL (%) 0.4 % (0-1); EOSINOPHIL (%) 1.4 % (0-5); EOSINOPHIL COUNT 0.1 K/uL (0-0.3); HEMATOCRIT 26.5 % (38.0-50.0); HEMOGLOBIN 8.1 G/DL (12.5-16.6); IMMATURE GRANULOCYTE (%) 0.4 % (0.0-0.7); LYMPHOCYTE (%) 9.2 % (15-42); LYMPHOCYTE COUNT 0.9 K/uL (1.0-2.8); MCH 27.9 PG (29.0-34.0); MCHC 30.6 G/DL (30.0-36.0); MCV 91.4 FL (86-99); MONOCYTE (%) 7.7 % (3-12); MONOCYTE COUNT 0.7 K/uL (0-0.8); NEUTROPHIL (%) 80.9 % (45-76); NEUTROPHIL COUNT 7.8 K/uL (1.8-6.4); PLATELET COUNT 138 K/uL (156-360); RBC DIS.WIDTH-CV 15.1 % (11.8-14.6); RBC DIS.WIDTH-SD 50.1 % (39-53); WHITE BLOOD COUNT 9.6 K/uL (4.1-10.2)
[2017-08-13 05:55] LABS: CHLORIDE 99 MEQ/L (99-109); CREATININE 4.6 MG/DL (0.6-1.3); GFR ESTIMATE (CALCULATED) 13 mL/min/ (58.99-99999); GLUCOSE 136 mg/dL (70-99); POTASSIUM 4.4 MEQ/L (3.7-5.4); SODIUM 133 MEQ/L (136-147); UREA NITROGEN (BUN) 55 mg/dL (9-23)
[2017-08-13 17:51] LABS: HEMATOCRIT 26.5 % (38.0-50.0); HEMOGLOBIN 8.2 G/DL (12.5-16.6); MCV 90.8 FL (86-99)
[2017-08-14] VITALS (11 sets, daily range): BP systolic 72–134; BP diastolic 42–76
[2017-08-14 05:14] LABS: BASOPHIL (%) 0.4 % (0-1); EOSINOPHIL (%) 1.3 % (0-5); EOSINOPHIL COUNT 0.1 K/uL (0-0.3); HEMATOCRIT 25.8 % (38.0-50.0); IMMATURE GRANULOCYTE (%) 0.6 % (0.0-0.7); LYMPHOCYTE (%) 10.8 % (15-42); LYMPHOCYTE COUNT 0.8 K/uL (1.0-2.8); MCH 28.4 PG (29.0-34.0); MCV 91.5 FL (86-99); MONOCYTE (%) 10.3 % (3-12); MONOCYTE COUNT 0.8 K/uL (0-0.8); NEUTROPHIL (%) 76.6 % (45-76); PLATELET COUNT 131 K/uL (156-360); RBC DIS.WIDTH-SD 49.8 % (39-53); RED BLOOD COUNT 2.82 M/uL (4.00-5.50); WHITE BLOOD COUNT 7.8 K/uL (4.1-10.2)
[2017-08-14 05:29] LABS: CHLORIDE 101 MEQ/L (99-109); GFR ESTIMATE (CALCULATED) 19 mL/min/ (58.99-99999); GLUCOSE 173 mg/dL (70-99); POTASSIUM 4.4 MEQ/L (3.7-5.4); SODIUM 135 MEQ/L (136-147); UREA NITROGEN (BUN) 36 mg/dL (9-23)
[2017-08-14 05:34] LABS: CREATININE 3.4 MG/DL (0.6-1.3)
[2017-08-14 18:24] LABS: HEMATOCRIT 25.4 % (38.0-50.0); MCV 91.7 FL (86-99)
[2017-08-15] VITALS (7 sets, daily range): BP systolic 91–157; BP diastolic 56–79
[2017-08-15 05:06] LABS: BASOPHIL (%) 0.3 % (0-1); EOSINOPHIL (%) 2.4 % (0-5); EOSINOPHIL COUNT 0.2 K/uL (0-0.3); HEMATOCRIT 24.7 % (38.0-50.0); IMMATURE GRANULOCYTE (%) 0.6 % (0.0-0.7); LYMPHOCYTE COUNT 0.7 K/uL (1.0-2.8); MCH 29.4 PG (29.0-34.0); MCHC 32.4 G/DL (30.0-36.0); MCV 90.8 FL (86-99); MONOCYTE (%) 9.4 % (3-12); MONOCYTE COUNT 0.6 K/uL (0-0.8); NEUTROPHIL (%) 77.3 % (45-76); NEUTROPHIL COUNT 5.2 K/uL (1.8-6.4); PLATELET COUNT 120 K/uL (156-360); RBC DIS.WIDTH-CV 15.2 % (11.8-14.6); RBC DIS.WIDTH-SD 49.9 % (39-53); RED BLOOD COUNT 2.72 M/uL (4.00-5.50); WHITE BLOOD COUNT 6.7 K/uL (4.1-10.2)
[2017-08-15 05:19] LABS: CHLORIDE 102 mEq/L (99-109); POTASSIUM 4.5 mEq/L (3.7-5.4); SODIUM 134 mEq/L (136-147)
[2017-08-15 05:21] LABS: GLUCOSE 171 mg/dL (70-99)
[2017-08-15 05:25] LABS: CREATININE 3.9 mg/dL (0.6-1.3); GFR ESTIMATE (CALCULATED) 16 mL/min/ (58.99-99999)
[2017-08-15 05:26] LABS: UREA NITROGEN (BUN) 49 mg/dL (9-23)
[2017-08-15 16:59] LABS: STOOL OCCULT BLD 1ST SPECIMEN POSITIVE
[2017-08-15 17:04] LABS: BASOPHIL (%) 0.2 % (0-1); EOSINOPHIL (%) 1.9 % (0-5); EOSINOPHIL COUNT 0.1 K/uL (0-0.3); HEMATOCRIT 24.9 % (38.0-50.0); HEMOGLOBIN 7.8 G/DL (12.5-16.6); IMMATURE GRANULOCYTE (%) 0.4 % (0.0-0.7); LYMPHOCYTE (%) 8.6 % (15-42); LYMPHOCYTE COUNT 0.5 K/uL (1.0-2.8); MCH 28.4 PG (29.0-34.0); MCHC 31.3 G/DL (30.0-36.0); MCV 90.5 FL (86-99); MONOCYTE (%) 8.8 % (3-12); MONOCYTE COUNT 0.5 K/uL (0-0.8); NEUTROPHIL (%) 80.1 % (45-76); NEUTROPHIL COUNT 4.5 K/uL (1.8-6.4); PLATELET COUNT 111 K/uL (156-360); RBC DIS.WIDTH-CV 15.1 % (11.8-14.6); RBC DIS.WIDTH-SD 49.7 % (39-53); RED BLOOD COUNT 2.75 M/uL (4.00-5.50); WHITE BLOOD COUNT 5.7 K/uL (4.1-10.2)
[2017-08-15 17:05] LABS: HEMATOCRIT 24.8 % (38.0-50.0); HEMOGLOBIN 7.8 G/DL (12.5-16.6); MCV 90.8 FL (86-99)
[2017-08-16 04:32] VITALS: BP 136/74
[2017-08-16 06:07] LABS: BASOPHIL (%) 0.3 % (0-1); EOSINOPHIL (%) 3.5 % (0-5); EOSINOPHIL COUNT 0.2 K/uL (0-0.3); HEMATOCRIT 25.3 % (38.0-50.0); HEMOGLOBIN 7.9 G/DL (12.5-16.6); IMMATURE GRANULOCYTE (%) 0.5 % (0.0-0.7); LYMPHOCYTE (%) 11.7 % (15-42); LYMPHOCYTE COUNT 0.7 K/uL (1.0-2.8); MCH 28.4 PG (29.0-34.0); MCHC 31.2 G/DL (30.0-36.0); MONOCYTE (%) 10.8 % (3-12); MONOCYTE COUNT 0.6 K/uL (0-0.8); NEUTROPHIL (%) 73.2 % (45-76); NEUTROPHIL COUNT 4.2 K/uL (1.8-6.4); NRBC (%) 0.3 /100 WBC (0-0); PLATELET COUNT 133 K/uL (156-360); RBC DIS.WIDTH-SD 50.2 % (39-53); RED BLOOD COUNT 2.78 M/uL (4.00-5.50); WHITE BLOOD COUNT 5.7 K/uL (4.1-10.2)
[2017-08-16 06:33] LABS: CHLORIDE 100 MEQ/L (99-109); GFR ESTIMATE (CALCULATED) 21 mL/min/ (58.99-99999); GLUCOSE 132 mg/dL (70-99); POTASSIUM 4.4 MEQ/L (3.7-5.4); SODIUM 134 MEQ/L (136-147); UREA NITROGEN (BUN) 30 mg/dL (9-23)
[2017-08-16 06:35] LABS: CREATININE 3.1 MG/DL (0.6-1.3)
[2017-08-16 07:08] VITALS: BP 132/99
[2017-08-16 11:22] VITALS: BP 124/82
[2017-08-16 17:00] VITALS: BP 126/82
[2017-08-16 17:51] LABS: HEMATOCRIT 25.3 % (38.0-50.0); HEMOGLOBIN 7.9 G/DL (12.5-16.6)
[2017-08-17] VITALS: BP 115/59
[2017-08-17 04:21] VITALS: BP 106/62
[2017-08-17 04:50] LABS: BASOPHIL (%) 0.6 % (0-1); EOSINOPHIL (%) 4.1 % (0-5); EOSINOPHIL COUNT 0.2 K/uL (0-0.3); HEMATOCRIT 26.6 % (38.0-50.0); HEMOGLOBIN 8.4 G/DL (12.5-16.6); IMMATURE GRANULOCYTE (%) 0.6 % (0.0-0.7); LYMPHOCYTE (%) 12.4 % (15-42); LYMPHOCYTE COUNT 0.6 K/uL (1.0-2.8); MCHC 31.6 G/DL (30.0-36.0); MCV 91.7 FL (86-99); MONOCYTE (%) 10.8 % (3-12); MONOCYTE COUNT 0.6 K/uL (0-0.8); NEUTROPHIL (%) 71.5 % (45-76); NEUTROPHIL COUNT 3.7 K/uL (1.8-6.4); PLATELET COUNT 137 K/uL (156-360); RBC DIS.WIDTH-CV 15.1 % (11.8-14.6); RBC DIS.WIDTH-SD 50.5 % (39-53); WHITE BLOOD COUNT 5.1 K/uL (4.1-10.2)
[2017-08-17 05:03] LABS: ALBUMIN 2.6 g/dL (3.2-4.8)
[2017-08-17 05:04] LABS: CHLORIDE 102 mEq/L (99-109); POTASSIUM 4.7 mEq/L (3.7-5.4); SODIUM 133 mEq/L (136-147)
[2017-08-17 05:06] LABS: GLUCOSE 133 mg/dL (70-99)
[2017-08-17 05:09] LABS: GFR ESTIMATE (CALCULATED) 17 mL/min/ (58.99-99999); PHOSPHORUS 3.8 mg/dL (2.5-4.9)
[2017-08-17 05:10] LABS: UREA NITROGEN (BUN) 40 mg/dL (9-23)
[2017-08-17 05:20] LABS: CREATININE 3.7 mg/dL (0.6-1.3)
[2017-08-17 06:56] VITALS: BP 105/67
[2017-08-17 12:32] VITALS: BP 121/64
[2017-08-17 19:31] VITALS: BP 98/55
[2017-08-17 19:47] LABS: HEMATOCRIT 26.7 % (38.0-50.0); HEMOGLOBIN 8.3 G/DL (12.5-16.6); MCV 90.8 FL (86-99)
[2017-08-17 23:47] VITALS: BP 132/69
[2017-08-18 05:44] LABS: BASOPHIL (%) 0.4 % (0-1); EOSINOPHIL (%) 3.7 % (0-5); EOSINOPHIL COUNT 0.2 K/uL (0-0.3); HEMATOCRIT 27.8 % (38.0-50.0); HEMOGLOBIN 8.5 G/DL (12.5-16.6); IMMATURE GRANULOCYTE (%) 0.6 % (0.0-0.7); LYMPHOCYTE (%) 14.6 % (15-42); LYMPHOCYTE COUNT 0.7 K/uL (1.0-2.8); MCH 28.5 PG (29.0-34.0); MCHC 30.6 G/DL (30.0-36.0); MCV 93.3 FL (86-99); MONOCYTE (%) 12.8 % (3-12); MONOCYTE COUNT 0.6 K/uL (0-0.8); NEUTROPHIL (%) 67.9 % (45-76); NEUTROPHIL COUNT 3.3 K/uL (1.8-6.4); PLATELET COUNT 147 K/uL (156-360); RBC DIS.WIDTH-CV 15.4 % (11.8-14.6); RBC DIS.WIDTH-SD 51.9 % (39-53); RED BLOOD COUNT 2.98 M/uL (4.00-5.50); WHITE BLOOD COUNT 4.9 K/uL (4.1-10.2)
[2017-08-18 06:17] LABS: CHLORIDE 102 MEQ/L (99-109); GFR ESTIMATE (CALCULATED) 21 mL/min/ (58.99-99999); GLUCOSE 119 mg/dL (70-99); POTASSIUM 4.7 MEQ/L (3.7-5.4); SODIUM 137 MEQ/L (136-147); UREA NITROGEN (BUN) 24 mg/dL (9-23)
[2017-08-18 07:55] VITALS: BP 103/63
[2017-08-18 12:16] VITALS: BP 103/62
[2017-08-18 16:06] VITALS: BP 108/57
[2017-08-18 18:40] LABS: HEMOGLOBIN 8.5 G/DL (12.5-16.6)
[2017-08-18 20:00] VITALS: BP 113/59
[2017-08-18 23:55] VITALS: BP 132/75
[2017-08-19] VITALS (7 sets, daily range): BP systolic 87–112; BP diastolic 50–69
[2017-08-19 05:10] LABS: BASOPHIL (%) 0.5 % (0-1); EOSINOPHIL (%) 3.3 % (0-5); EOSINOPHIL COUNT 0.2 K/uL (0-0.3); HEMATOCRIT 26.6 % (38.0-50.0); IMMATURE GRANULOCYTE (%) 0.6 % (0.0-0.7); LYMPHOCYTE (%) 13.5 % (15-42); LYMPHOCYTE COUNT 0.9 K/uL (1.0-2.8); MCHC 30.1 G/DL (30.0-36.0); MONOCYTE (%) 10.3 % (3-12); MONOCYTE COUNT 0.7 K/uL (0-0.8); NEUTROPHIL (%) 71.8 % (45-76); NEUTROPHIL COUNT 4.6 K/uL (1.8-6.4); PLATELET COUNT 169 K/uL (156-360); RBC DIS.WIDTH-CV 15.4 % (11.8-14.6); RBC DIS.WIDTH-SD 52.2 % (39-53); RED BLOOD COUNT 2.86 M/uL (4.00-5.50); WHITE BLOOD COUNT 6.4 K/uL (4.1-10.2)
[2017-08-19 06:07] LABS: CHLORIDE 98 MEQ/L (99-109); GFR ESTIMATE (CALCULATED) 15 mL/min/ (58.99-99999); GLUCOSE 103 mg/dL (70-99); IRON 17 MCG/DL (35-150); POTASSIUM 4.4 MEQ/L (3.7-5.4); SODIUM 137 MEQ/L (136-147); TRANSFERRIN (TIBC) 148.8 mg/dL (215-380); TRANSFERRIN SATUR. 11 % (20-55); UREA NITROGEN (BUN) 33 mg/dL (9-23)
[2017-08-19 06:08] LABS: CREATININE 4.1 MG/DL (0.6-1.3)
[2017-08-19 17:45] LABS: HEMATOCRIT 27.3 % (38.0-50.0); HEMOGLOBIN 8.3 G/DL (12.5-16.6); MCV 94.1 FL (86-99)
[2017-08-20] VITALS (7 sets, daily range): BP systolic 83–120; BP diastolic 47–87
[2017-08-20 09:09] LABS: CHLORIDE 102 MEQ/L (99-109); GFR ESTIMATE (CALCULATED) 11 mL/min/ (58.99-99999); POTASSIUM 4.4 MEQ/L (3.7-5.4); SODIUM 136 MEQ/L (136-147); UREA NITROGEN (BUN) 41 mg/dL (9-23)
[2017-08-20 09:17] LABS: CREATININE 5.2 MG/DL (0.6-1.3); GLUCOSE 161 mg/dL (70-99)
[2017-08-20 09:24] LABS: HEMATOCRIT 27.8 % (38.0-50.0); HEMOGLOBIN 8.3 G/DL (12.5-16.6); MCH 27.9 PG (29.0-34.0); MCHC 29.9 G/DL (30.0-36.0); MCV 93.6 FL (86-99); RBC DIS.WIDTH-CV 15.8 % (11.8-14.6); RED BLOOD COUNT 2.97 M/uL (4.00-5.50); WHITE BLOOD COUNT 6.3 K/uL (4.1-10.2)
[2017-08-20 09:26] LABS: HEMATOCRIT 27.8 % (38.0-50.0); HEMOGLOBIN 8.3 G/DL (12.5-16.6); MCV 93.6 FL (86-99)
[2017-08-20 10:44] LABS: BASOPHIL (%) 0.5 % (0-1); EOSINOPHIL (%) 4.8 % (0-5); EOSINOPHIL COUNT 0.3 K/uL (0-0.3); IMMATURE GRANULOCYTE (%) 0.6 % (0.0-0.7); LYMPHOCYTE (%) 12.4 % (15-42); LYMPHOCYTE COUNT 0.8 K/uL (1.0-2.8); MONOCYTE (%) 7.6 % (3-12); MONOCYTE COUNT 0.5 K/uL (0-0.8); NEUTROPHIL (%) 74.1 % (45-76); NEUTROPHIL COUNT 4.7 K/uL (1.8-6.4)
[2017-08-20 12:00] LABS: PLAT.SUFFICIENCY ADEQUATE; PLATELET COUNT 162 K/uL (156-360)
[2017-08-21 04:00] VITALS: BP 98/55
[2017-08-21 05:34] LABS: BASOPHIL (%) 0.5 % (0-1); EOSINOPHIL (%) 4.1 % (0-5); EOSINOPHIL COUNT 0.3 K/uL (0-0.3); HEMATOCRIT 29.5 % (38.0-50.0); HEMOGLOBIN 8.8 G/DL (12.5-16.6); IMMATURE GRANULOCYTE (%) 0.9 % (0.0-0.7); LYMPHOCYTE (%) 17.6 % (15-42); LYMPHOCYTE COUNT 1.2 K/uL (1.0-2.8); MCH 27.8 PG (29.0-34.0); MCHC 29.8 G/DL (30.0-36.0); MCV 93.1 FL (86-99); MONOCYTE (%) 9.8 % (3-12); MONOCYTE COUNT 0.7 K/uL (0-0.8); NEUTROPHIL (%) 67.1 % (45-76); NEUTROPHIL COUNT 4.5 K/uL (1.8-6.4); PLATELET COUNT 160 K/uL (156-360); RBC DIS.WIDTH-CV 15.4 % (11.8-14.6); RBC DIS.WIDTH-SD 52.4 % (39-53); RED BLOOD COUNT 3.17 M/uL (4.00-5.50); WHITE BLOOD COUNT 6.7 K/uL (4.1-10.2)
[2017-08-21 06:07] LABS: CHLORIDE 101 MEQ/L (99-109); CREATININE 3.7 MG/DL (0.6-1.3); GFR ESTIMATE (CALCULATED) 17 mL/min/ (58.99-99999); GLUCOSE 152 mg/dL (70-99); POTASSIUM 4.8 MEQ/L (3.7-5.4); SODIUM 135 MEQ/L (136-147); UREA NITROGEN (BUN) 27 mg/dL (9-23)
[2017-08-21 08:18] VITALS: BP 104/57
== END 2017-08-21 10:04 | disposition designated cancer center or children's hospital, planned readmission (85) | DRG 189 ==
LOC: EME 10:12 → EDOF 12:04 → 5SOUTH 12:04 → 4EAST 12:04 → ENRESERV 12:05 → 4EAST 15:11 → ENRESERV 08-01 15:41 → 5SOUTH 08-01 17:56 → ENRESERV 08-04 15:47 → 4EAST 08-04 16:31
PROVIDERS: Emergency Medicine; Family Medicine; Hospitalist; Internal Medicine; Internal Medicine Cardiovascular Disease; Internal Medicine Nephrology; Physician Assistant
PROC: 5A09357 Assistance with Respiratory Ventilation, Less than 24 Consecutive Hours, Continuous Positive Airway Pressure (ICD-10-PCS; principal; 2017-07-25)
PROC: 0JHD3WZ Insertion of Totally Implantable Vascular Access Device into Right Upper Arm Subcutaneous Tissue and Fascia, Percutaneous Approach (ICD-10-PCS; 2017-08-08)
PROC: 4A023N7 Measurement of Cardiac Sampling and Pressure, Left Heart, Percutaneous Approach (ICD-10-PCS; 2017-08-08)
PROC: 02HV33Z Insertion of Infusion Device into Superior Vena Cava, Percutaneous Approach (ICD-10-PCS; 2017-08-08)
PROC: B2151ZZ Fluoroscopy of Left Heart using Low Osmolar Contrast (ICD-10-PCS; 2017-08-08)
PROC: B549ZZA Ultrasonography of Inferior Vena Cava, Guidance (ICD-10-PCS; 2017-08-08)
PROC: B2111ZZ Fluoroscopy of Multiple Coronary Arteries using Low Osmolar Contrast (ICD-10-PCS; 2017-08-08)
PROC: B5181ZA Fluoroscopy of Superior Vena Cava using Low Osmolar Contrast, Guidance (ICD-10-PCS; 2017-08-08)
PROC: 5A1D70Z Performance of Urinary Filtration, Intermittent, Less than 6 Hours Per Day (ICD-10-PCS; 2017-08-09)
PROC: 0DJ08ZZ Inspection of Upper Intestinal Tract, Via Natural or Artificial Opening Endoscopic (ICD-10-PCS; 2017-08-09)
DX: J96.01 Acute respiratory failure with hypoxia (principal); J18.9 Pneumonia, unspecified organism; N18.6 End stage renal disease; I21.4 Non-ST elevation (NSTEMI) myocardial infarction; J44.1 Chronic obstructive pulmonary disease with (acute) exacerbation; J44.0 Chronic obstructive pulmonary disease with (acute) lower respiratory infection; J98.11 Atelectasis; N17.9 Acute kidney failure, unspecified; K92.0 Hematemesis; K22.10 Ulcer of esophagus without bleeding; E87.2 Acidosis; I13.2 Hypertensive heart and chronic kidney disease with heart failure and with stage 5 chronic kidney disease, or end stage renal disease; K92.1 Melena; I25.10 Atherosclerotic heart disease of native coronary artery without angina pectoris; I48.0 Paroxysmal atrial fibrillation; I48.2 Chronic atrial fibrillation; N40.1 Benign prostatic hyperplasia with lower urinary tract symptoms; R33.8 Other retention of urine; K59.00 Constipation, unspecified; G47.33 Obstructive sleep apnea (adult) (pediatric); I27.20 Pulmonary hypertension, unspecified; D63.1 Anemia in chronic kidney disease; D50.0 Iron deficiency anemia secondary to blood loss (chronic); E11.21 Type 2 diabetes mellitus with diabetic nephropathy; E11.22 Type 2 diabetes mellitus with diabetic chronic kidney disease; E11.51 Type 2 diabetes mellitus with diabetic peripheral angiopathy without gangrene; E11.65 Type 2 diabetes mellitus with hyperglycemia; E66.01 Morbid (severe) obesity due to excess calories; E78.5 Hyperlipidemia, unspecified; E83.51 Hypocalcemia; I49.3 Ventricular premature depolarization; I77.1 Stricture of artery; Z96.653 Presence of artificial knee joint, bilateral; Z91.041 Radiographic dye allergy status; Z87.442 Personal history of urinary calculi; Z86.718 Personal history of other venous thrombosis and embolism; Z79.82 Long term (current) use of aspirin; Z79.4 Long term (current) use of insulin; I25.2 Old myocardial infarction; Z87.891 Personal history of nicotine dependence; Z99.2 Dependence on renal dialysis; Z75.1 Person awaiting admission to adequate facility elsewhere; Z68.37 Body mass index [BMI] 37.0-37.9, adult; Z90.79 Acquired absence of other genital organ(s); Z95.2 Presence of prosthetic heart valve; Z95.5 Presence of coronary angioplasty implant and graft; Z79.51 Long term (current) use of inhaled steroids; Z82.49 Family history of ischemic heart disease and other diseases of the circulatory system; I50.23 Acute on chronic systolic (congestive) heart failure
CPT/HCPCS: 71045; 73700; 74019; 74022; 74176; 76770; 80048; 80048 91; 80053; 80069; 80074; 80076; 81003; 82272; 82330; 82570; 82575; 82948; 83540; 83690; 83735; 83880; 84100; 84156; 84466; 84484; 84550; 85014; 85018; 85025; 85025 91; 85027; 85610; 85730; 92526 GN; 92610 GN; 93005; 93306; 93971; 94010; 94640; 94640 76; 94660; 94664; 94760; 94799; 97530 GP; 99202; 99281; 99285; C1750; C1760; C1769; C1894; C9113; J0360; J0610; J0690; J0881; J1200; J1644; J1756; J1815; J1940; J2250; J2270; J2405; J2765; J2920; J2930; J3010; J7030; J7040; J7050; J7512; S0020

== ENCOUNTER 2017-10-11 13:24 | Outpatient (CLI) | payer OTHER ==
[~2017-10-11 13:24] MED LIST changes: +ASPIR-LOW81 MG PO
[2017-10-16] MEDS ORDERED: TYLENOL REGULA325 MG PO (15:19)
[2017-10-16] MEDS ORDERED: ATORVASTATIN CA80 MG PO (15:20)
[2017-10-16] MEDS ORDERED: FINASTERIDE5 MG PO (15:20)
[2017-10-16] MEDS ORDERED: DULCOLAX10 MG PR (15:20)
[2017-10-16] MEDS ORDERED: NEPHRO-VITE,1 TABLET PO (15:21)
[2017-10-16] MEDS ORDERED: LANTUS 3 M100 UNITS1 SC (15:21)
[2017-10-16] MEDS ORDERED: GUAIFENESIN200 M2 PO (15:21)
[2017-10-16] MEDS ORDERED: TOPROL XL25 MG PO (15:21)
[2017-10-16] MEDS ORDERED: ASCORBIC ACID500 M3 PO (15:22)
[2017-10-16] MEDS ORDERED: ADVAIR 500/501 DISK IH (15:22)
[2017-10-16] MEDS ORDERED: FLONASE16 G1 BOTH NARES (15:22)
[2017-10-16] MEDS ORDERED: OMEPRAZOLE20 MG PO (15:22)
[2017-10-16] MEDS ORDERED: SPIRIVA18 MCG IH (15:23)
[2017-10-16] MEDS ORDERED: SORE THROAT SP177 M1 MM (15:23)
[2017-10-17] MEDS ORDERED: VANCOCIN 250 M250 MG PO (11:53)
[2017-11-09] MEDS ORDERED: NEPHRO-VITE,1 TABLET PO (12:52)
[2017-11-09] MEDS ORDERED: TYLENOL REGULA325 MG PO (12:52)
== END 2017-10-25 11:59 ==
LOC: RAD 13:24
PROVIDERS: Family Medicine
DX: J90 Pleural effusion, not elsewhere classified (principal)
CPT/HCPCS: 71250; 82948

== ENCOUNTER 2017-10-17 11:16 | Day surgery (SDC) | payer OTHER ==
[~2017-10-17] VITALS: Ht 162.6 cm; Wt 89.8 kg
[~2017-10-17 11:16] MED LIST changes: +DULCOLAX10 MG PR; +GUAIFENESIN200 M2 PO; +LANTUS 3 M100 UNITS1 SC; +NEPHRO-VITE,1 TABLET PO; +OMEPRAZOLE20 MG PO; +SORE THROAT SP177 M1 MM; +SPIRIVA18 MCG IH; +TYLENOL REGULA325 MG PO
[2017-10-17] MEDS ORDERED: VANCOCIN 250 M250 MG PO (11:53)
== END 2017-10-17 15:50 ==
LOC: CATH 11:16
PROVIDERS: Surgery
DX: T82.41XA Breakdown (mechanical) of vascular dialysis catheter, initial encounter (principal); E11.22 Type 2 diabetes mellitus with diabetic chronic kidney disease; N18.6 End stage renal disease; Z99.2 Dependence on renal dialysis; I25.2 Old myocardial infarction; J44.9 Chronic obstructive pulmonary disease, unspecified; I48.91 Unspecified atrial fibrillation; D50.9 Iron deficiency anemia, unspecified
CPT/HCPCS: 82948; C1750; J0690; J1200; J1644; J2250; S0020

== ENCOUNTER 2017-10-24 06:49 | Emergency (ER) | payer OTHER ==
[~2017-10-24] VITALS: Ht 162.6 cm; Wt 86.2 kg
[~2017-10-24 06:49] MED LIST changes: +TOPROL XL25 MG PO; +VANCOCIN 250 M250 MG PO
[2017-10-24 08:18] LABS: HEMATOCRIT 30.5 % (38.0-50.0); HEMOGLOBIN 9.6 G/DL (12.5-16.6); MCH 27.7 PG (29.0-34.0); MCHC 31.5 G/DL (30.0-36.0); MCV 88.2 FL (86-99); PLATELET COUNT 238 K/uL (156-360); RBC DIS.WIDTH-CV 19.8 % (11.8-14.6); RBC DIS.WIDTH-SD 61.9 % (39-53); RED BLOOD COUNT 3.46 M/uL (4.00-5.50); WHITE BLOOD COUNT 12.2 K/uL (4.1-10.2)
[2017-10-24 08:23] LABS: CHLORIDE 103 mEq/L (99-109); SODIUM 142 mEq/L (136-147)
[2017-10-24 08:25] LABS: GLUCOSE 170 mg/dL (70-99)
[2017-10-24 08:29] LABS: CREATININE 4.4 mg/dL (0.6-1.3); GFR ESTIMATE (CALCULATED) 14 mL/min/ (58.99-99999); UREA NITROGEN (BUN) 33 mg/dL (9-23)
[2017-10-24 10:18] VITALS: BP 158/78
== END 2017-10-24 10:22 ==
LOC: EME → EDBD 06:49 → EME 10:22
PROVIDERS: Emergency Medicine
DX: S60.222A Contusion of left hand, initial encounter (principal); S00.81XA Abrasion of other part of head, initial encounter; M25.562 Pain in left knee; W01.0XXA Fall on same level from slipping, tripping and stumbling without subsequent striking against object, initial encounter; I12.9 Hypertensive chronic kidney disease with stage 1 through stage 4 chronic kidney disease, or unspecified chronic kidney disease; E11.22 Type 2 diabetes mellitus with diabetic chronic kidney disease; N18.9 Chronic kidney disease, unspecified; Z99.2 Dependence on renal dialysis; Z79.4 Long term (current) use of insulin; Z96.652 Presence of left artificial knee joint; E78.5 Hyperlipidemia, unspecified; Z95.0 Presence of cardiac pacemaker; I25.2 Old myocardial infarction; I48.91 Unspecified atrial fibrillation; J44.9 Chronic obstructive pulmonary disease, unspecified; Z95.5 Presence of coronary angioplasty implant and graft; Z87.891 Personal history of nicotine dependence
CPT/HCPCS: 70450; 73130; 73564; 80048; 85027; 93005; 99281; 99284

== ENCOUNTER 2017-10-24 15:08 | Day surgery (SDC) | payer OTHER ==
[~2017-10-24 15:08] MED LIST changes: -TOPROL XL25 MG PO
== END 2017-10-24 18:35 | disposition home or self-care (01) ==
LOC: CATH 15:08
DX: T82.41XA Breakdown (mechanical) of vascular dialysis catheter, initial encounter (principal); Y83.2 Surgical operation with anastomosis, bypass or graft as the cause of abnormal reaction of the patient, or of later complication, without mention of misadventure at the time of the procedure; I12.0 Hypertensive chronic kidney disease with stage 5 chronic kidney disease or end stage renal disease; E11.22 Type 2 diabetes mellitus with diabetic chronic kidney disease; N18.6 End stage renal disease; Z99.2 Dependence on renal dialysis; Z79.4 Long term (current) use of insulin; E11.621 Type 2 diabetes mellitus with foot ulcer; L97.529 Non-pressure chronic ulcer of other part of left foot with unspecified severity; Z79.02 Long term (current) use of antithrombotics/antiplatelets; I25.10 Atherosclerotic heart disease of native coronary artery without angina pectoris
CPT/HCPCS: 82948; 87641; C1750; J0690; J1644; J2250; J3010

== ENCOUNTER 2017-10-31 03:20 | Inpatient (IN) | payer OTHER ==
[~2017-10-31] VITALS: Ht 162.6 cm; Wt 86.0 kg
[~2017-10-31 03:20] MED LIST changes: +TOPROL XL25 MG PO
[2017-10-31 04:04] LABS: HEMATOCRIT 31.9 % (38.0-50.0); MCH 27.9 PG (29.0-34.0); MCHC 31.3 G/DL (30.0-36.0); MCV 89.1 FL (86-99); PLATELET COUNT 237 K/uL (156-360); RBC DIS.WIDTH-CV 19.1 % (11.8-14.6); RBC DIS.WIDTH-SD 62.4 % (39-53); RED BLOOD COUNT 3.58 M/uL (4.00-5.50); WHITE BLOOD COUNT 17.4 K/uL (4.1-10.2)
[2017-10-31 04:13] LABS: ALBUMIN 2.5 g/dL (3.2-4.8); CHLORIDE 100 mEq/L (99-109); POTASSIUM 3.2 mEq/L (3.7-5.4)
[2017-10-31 04:14] LABS: SODIUM 140 mEq/L (136-147)
[2017-10-31 04:16] LABS: GLUCOSE 169 mg/dL (70-99); TOTAL PROTEIN 4.9 g/dL (6.4-8.3)
[2017-10-31 04:18] LABS: TOTAL BILIRUBIN 0.4 mg/dL (0.0-1.0)
[2017-10-31 04:19] LABS: ALKALINE PHOSPHATASE 103 IU/L (3-129); CREATININE 4.9 mg/dL (0.6-1.3); GFR ESTIMATE (CALCULATED) 12 mL/min/ (58.99-99999)
[2017-10-31 04:21] LABS: AST (GOT) 11 IU/L (2-34); UREA NITROGEN (BUN) 25 mg/dL (9-23)
[2017-10-31 04:22] LABS: ALT (GPT) 3 IU/L (3-49)
[2017-10-31 04:23] LABS: LIPASE 4 U/L (1.0-51.0)
[2017-10-31 04:28] LABS: TROP-I INTERPRETATION NEGATIVE; TROPONIN-I 0.16 ng/mL (0.0-0.30)
[2017-10-31 06:12] LABS: C DIFF TOXIN POSITIVE (NEGATIVE)
[2017-10-31] MEDS ORDERED: BASAGLAR K100 UNIT/1 SC (07:59)
[2017-10-31 16:09] VITALS: BP 108/60
[2017-10-31 21:19] VITALS: BP 152/68
[2017-10-31 23:50] VITALS: BP 126/60
[2017-11-01 04:10] VITALS: BP 121/59
[2017-11-01 07:39] LABS: HEMATOCRIT 34.1 % (38.0-50.0); MCHC 29.3 G/DL (30.0-36.0); MCV 91.9 FL (86-99); PLATELET COUNT 273 K/uL (156-360); RBC DIS.WIDTH-CV 19.3 % (11.8-14.6); RBC DIS.WIDTH-SD 65.1 % (39-53); RED BLOOD COUNT 3.71 M/uL (4.00-5.50); WHITE BLOOD COUNT 21.2 K/uL (4.1-10.2)
[2017-11-01 08:10] LABS: CHLORIDE 106 MEQ/L (99-109); CREATININE 3.1 MG/DL (0.6-1.3); GFR ESTIMATE (CALCULATED) 21 mL/min/ (58.99-99999); GLUCOSE 57 mg/dL (70-99); POTASSIUM 4.1 MEQ/L (3.7-5.4); SODIUM 138 MEQ/L (136-147); UREA NITROGEN (BUN) 14 mg/dL (9-23)
[2017-11-01 10:24] VITALS: BP 120/60
[2017-11-01 12:48] VITALS: BP 130/60
[2017-11-01 16:47] VITALS: BP 150/60
[2017-11-02 00:14] VITALS: BP 120/60
[2017-11-02 05:58] VITALS: BP 135/60
[2017-11-02 08:51] LABS: HEMATOCRIT 31.2 % (38.0-50.0); HEMOGLOBIN 9.1 G/DL (12.5-16.6); MCH 26.7 PG (29.0-34.0); MCHC 29.2 G/DL (30.0-36.0); MCV 91.5 FL (86-99); PLATELET COUNT 261 K/uL (156-360); RBC DIS.WIDTH-CV 19.1 % (11.8-14.6); RBC DIS.WIDTH-SD 63.6 % (39-53); RED BLOOD COUNT 3.41 M/uL (4.00-5.50); WHITE BLOOD COUNT 14.1 K/uL (4.1-10.2)
[2017-11-02 09:01] LABS: CHLORIDE 106 MEQ/L (99-109); POTASSIUM 3.4 MEQ/L (3.7-5.4); SODIUM 138 MEQ/L (136-147)
[2017-11-02 09:07] LABS: CREATININE 3.6 MG/DL (0.6-1.3); GFR ESTIMATE (CALCULATED) 17 mL/min/ (58.99-99999); UREA NITROGEN (BUN) 19 mg/dL (9-23)
[2017-11-02 09:25] LABS: GLUCOSE 242 mg/dL (70-99)
[2017-11-02 11:32] LABS: TROP-I INTERPRETATION NEGATIVE; TROPONIN-I 0.09 ng/mL (0.0-0.30)
[2017-11-02 12:19] VITALS: BP 135/65
[2017-11-02 16:15] VITALS: BP 140/70
[2017-11-02 17:36] LABS: TROP-I INTERPRETATION NEGATIVE
[2017-11-02 23:05] LABS: TROP-I INTERPRETATION NEGATIVE; TROPONIN-I 0.09 ng/mL (0.0-0.30)
[2017-11-03 00:18] VITALS: BP 115/60
[2017-11-03 05:47] LABS: BASOPHIL (%) 0.6 % (0-1); BASOPHIL COUNT 0.1 K/uL (0-0.1); EOSINOPHIL (%) 6.2 % (0-5); EOSINOPHIL COUNT 0.7 K/uL (0-0.3); HEMATOCRIT 31.9 % (38.0-50.0); HEMOGLOBIN 9.3 G/DL (12.5-16.6); IMMATURE GRANULOCYTE (%) 1.7 % (0.0-0.7); LYMPHOCYTE COUNT 1.5 K/uL (1.0-2.8); MCH 26.1 PG (29.0-34.0); MCHC 29.2 G/DL (30.0-36.0); MCV 89.6 FL (86-99); MONOCYTE (%) 8.6 % (3-12); NEUTROPHIL (%) 69.9 % (45-76); NEUTROPHIL COUNT 8.1 K/uL (1.8-6.4); PLATELET COUNT 266 K/uL (156-360); RBC DIS.WIDTH-SD 62.4 % (39-53); RED BLOOD COUNT 3.56 M/uL (4.00-5.50); WHITE BLOOD COUNT 11.7 K/uL (4.1-10.2)
[2017-11-03 06:18] LABS: CHLORIDE 107 MEQ/L (99-109); CREATININE 3.6 MG/DL (0.6-1.3); GFR ESTIMATE (CALCULATED) 17 mL/min/ (58.99-99999); GLUCOSE 160 mg/dL (70-99); SODIUM 140 MEQ/L (136-147); UREA NITROGEN (BUN) 19 mg/dL (9-23)
[2017-11-03 06:24] LABS: POTASSIUM 4.1 MEQ/L (3.7-5.4)
[2017-11-03 08:51] VITALS: BP 140/69
[2017-11-03 16:26] VITALS: BP 126/65
[2017-11-04 00:14] VITALS: BP 119/60
[2017-11-04 05:31] LABS: BASOPHIL (%) 0.6 % (0-1); BASOPHIL COUNT 0.1 K/uL (0-0.1); EOSINOPHIL (%) 6.7 % (0-5); EOSINOPHIL COUNT 0.6 K/uL (0-0.3); HEMATOCRIT 30.8 % (38.0-50.0); HEMOGLOBIN 9.1 G/DL (12.5-16.6); IMMATURE GRANULOCYTE (%) 3.5 % (0.0-0.7); LYMPHOCYTE (%) 15.3 % (15-42); LYMPHOCYTE COUNT 1.3 K/uL (1.0-2.8); MCH 26.4 PG (29.0-34.0); MCHC 29.5 G/DL (30.0-36.0); MCV 89.3 FL (86-99); MONOCYTE (%) 10.2 % (3-12); MONOCYTE COUNT 0.8 K/uL (0-0.8); NEUTROPHIL (%) 63.7 % (45-76); NEUTROPHIL COUNT 5.3 K/uL (1.8-6.4); PLATELET COUNT 223 K/uL (156-360); RBC DIS.WIDTH-CV 19.2 % (11.8-14.6); RBC DIS.WIDTH-SD 62.7 % (39-53); RED BLOOD COUNT 3.45 M/uL (4.00-5.50); WHITE BLOOD COUNT 8.3 K/uL (4.1-10.2)
[2017-11-04 06:15] LABS: IRON 25 MCG/DL (35-150)
[2017-11-04 06:16] LABS: TRANSFERRIN (TIBC) < 75 mg/dL (215-380); TRANSFERRIN SATUR. 30 % (20-55)
[2017-11-04 07:45] VITALS: BP 134/65
[2017-11-04 15:18] VITALS: BP 130/62
[2017-11-04 22:09] VITALS: BP 148/62
[2017-11-05 00:29] VITALS: BP 150/68
[2017-11-05 04:24] VITALS: BP 138/52
[2017-11-05 06:06] LABS: BASOPHIL (%) 0.8 % (0-1); BASOPHIL COUNT 0.1 K/uL (0-0.1); EOSINOPHIL (%) 4.2 % (0-5); EOSINOPHIL COUNT 0.4 K/uL (0-0.3); HEMATOCRIT 35.7 % (38.0-50.0); HEMOGLOBIN 10.4 G/DL (12.5-16.6); IMMATURE GRANULOCYTE (%) 4.4 % (0.0-0.7); LYMPHOCYTE (%) 20.7 % (15-42); LYMPHOCYTE COUNT 1.8 K/uL (1.0-2.8); MCH 26.7 PG (29.0-34.0); MCHC 29.1 G/DL (30.0-36.0); MCV 91.8 FL (86-99); MONOCYTE (%) 10.5 % (3-12); MONOCYTE COUNT 0.9 K/uL (0-0.8); NEUTROPHIL (%) 59.4 % (45-76); NEUTROPHIL COUNT 5.2 K/uL (1.8-6.4); NRBC (%) 0.2 /100 WBC (0-0); RBC DIS.WIDTH-CV 19.6 % (11.8-14.6); RBC DIS.WIDTH-SD 64.8 % (39-53); RED BLOOD COUNT 3.89 M/uL (4.00-5.50); WHITE BLOOD COUNT 8.8 K/uL (4.1-10.2)
[2017-11-05 06:36] LABS: CHLORIDE 108 MEQ/L (99-109); CREATININE 3.9 MG/DL (0.6-1.3); GFR ESTIMATE (CALCULATED) 16 mL/min/ (58.99-99999); GLUCOSE 149 mg/dL (70-99); POTASSIUM 3.7 MEQ/L (3.7-5.4); SODIUM 141 MEQ/L (136-147); UREA NITROGEN (BUN) 28 mg/dL (9-23)
[2017-11-05 06:57] LABS: PLAT.SUFFICIENCY ADEQUATE; PLATELET COUNT 213 K/uL (156-360)
[2017-11-05 16:50] VITALS: BP 140/51
[2017-11-05 19:21] VITALS: BP 126/79
[2017-11-05 23:03] VITALS: BP 102/59
[2017-11-06 03:55] VITALS: BP 132/79
[2017-11-06 06:50] LABS: BASOPHIL (%) 0.6 % (0-1); BASOPHIL COUNT 0.1 K/uL (0-0.1); EOSINOPHIL (%) 5.3 % (0-5); EOSINOPHIL COUNT 0.5 K/uL (0-0.3); HEMATOCRIT 32.5 % (38.0-50.0); HEMOGLOBIN 9.7 G/DL (12.5-16.6); IMMATURE GRANULOCYTE (%) 4.1 % (0.0-0.7); LYMPHOCYTE COUNT 1.7 K/uL (1.0-2.8); MCH 27.2 PG (29.0-34.0); MCHC 29.8 G/DL (30.0-36.0); MCV 91.3 FL (86-99); MONOCYTE COUNT 0.9 K/uL (0-0.8); NRBC (%) 0.2 /100 WBC (0-0); PLATELET COUNT 205 K/uL (156-360); RBC DIS.WIDTH-CV 19.8 % (11.8-14.6); RED BLOOD COUNT 3.56 M/uL (4.00-5.50); WHITE BLOOD COUNT 9.6 K/uL (4.1-10.2)
[2017-11-06 07:12] LABS: CHLORIDE 105 MEQ/L (99-109); CREATININE 3.5 MG/DL (0.6-1.3); GFR ESTIMATE (CALCULATED) 18 mL/min/ (58.99-99999); GLUCOSE 173 mg/dL (70-99); POTASSIUM 3.4 MEQ/L (3.7-5.4); SODIUM 141 MEQ/L (136-147); UREA NITROGEN (BUN) 29 mg/dL (9-23)
[2017-11-06 08:24] VITALS: BP 140/74
[2017-11-06] MEDS ORDERED: VANCOCIN HCL125 MG PO (11:09)
[2017-11-06] MEDS ORDERED: GABAPENTIN100 MG PO (11:11)
[2017-11-06] MEDS ORDERED: FERROUS SULFAT325 MG PO (11:11)
[2017-11-06 11:28] VITALS: BP 130/70
[2017-11-09] MEDS ORDERED: TYLENOL REGULA325 MG PO (12:52)
[2017-11-09] MEDS ORDERED: NEPHRO-VITE,1 TABLET PO (12:52)
== END 2017-11-06 14:21 | DRG 371 ==
LOC: EME → EDBD 03:20 → 2EAST 07:46 → EDOF 07:46 → ENRESERV 07:49 → 2EAST 15:47
PROVIDERS: Emergency Medicine; Hospitalist; Internal Medicine Nephrology; Physician Assistant
PROC: 02PY33Z Removal of Infusion Device from Great Vessel, Percutaneous Approach (ICD-10-PCS; principal; 2017-11-02)
PROC: B5181ZA Fluoroscopy of Superior Vena Cava using Low Osmolar Contrast, Guidance (ICD-10-PCS; principal; 2017-11-02)
PROC: 02HV33Z Insertion of Infusion Device into Superior Vena Cava, Percutaneous Approach (ICD-10-PCS; principal; 2017-11-02)
DX: A04.71 Enterocolitis due to Clostridium difficile, recurrent (principal); N18.6 End stage renal disease; T82.41XA Breakdown (mechanical) of vascular dialysis catheter, initial encounter; I12.0 Hypertensive chronic kidney disease with stage 5 chronic kidney disease or end stage renal disease; J44.1 Chronic obstructive pulmonary disease with (acute) exacerbation; J90 Pleural effusion, not elsewhere classified; K51.00 Ulcerative (chronic) pancolitis without complications; M75.32 Calcific tendinitis of left shoulder; E11.9 Type 2 diabetes mellitus without complications; M25.512 Pain in left shoulder; R07.9 Chest pain, unspecified; G47.33 Obstructive sleep apnea (adult) (pediatric); E87.6 Hypokalemia; B96.89 Other specified bacterial agents as the cause of diseases classified elsewhere; D64.9 Anemia, unspecified; E11.649 Type 2 diabetes mellitus with hypoglycemia without coma; E86.0 Dehydration; I48.0 Paroxysmal atrial fibrillation; R63.0 Anorexia; I35.0 Nonrheumatic aortic (valve) stenosis; N40.0 Benign prostatic hyperplasia without lower urinary tract symptoms; E78.5 Hyperlipidemia, unspecified; E11.42 Type 2 diabetes mellitus with diabetic polyneuropathy; E11.22 Type 2 diabetes mellitus with diabetic chronic kidney disease; S43.102A Unspecified dislocation of left acromioclavicular joint, initial encounter; I25.10 Atherosclerotic heart disease of native coronary artery without angina pectoris; Z95.2 Presence of prosthetic heart valve; Z99.2 Dependence on renal dialysis; Z86.718 Personal history of other venous thrombosis and embolism; V86.61XA Passenger of ambulance or fire engine injured in nontraffic accident, initial encounter; Y93.89 Activity, other specified; Y92.9 Unspecified place or not applicable; I25.2 Old myocardial infarction; Z95.0 Presence of cardiac pacemaker; Z79.4 Long term (current) use of insulin; Z68.32 Body mass index [BMI] 32.0-32.9, adult; Z87.11 Personal history of peptic ulcer disease; Z95.5 Presence of coronary angioplasty implant and graft; Z79.899 Other long term (current) drug therapy; Z96.653 Presence of artificial knee joint, bilateral
CPT/HCPCS: 71045; 73030; 74176; 80048; 80053; 81003; 82948; 83540; 83605; 83630; 83690; 84466; 84484; 85025; 85027; 87040; 87493; 93005; 97530 GP; 99281; 99285; C1750; J0690; J0744; J1644; J1815; J2250; J2765; J2997; J3010; J3480; J7030; J7042; S0020; S0030

== ENCOUNTER 2017-11-12 11:36 | Inpatient (IN) | payer OTHER ==
[~2017-11-12] VITALS: Ht 160 cm; Wt 170.0 kg
[~2017-11-12 11:36] MED LIST changes: +BASAGLAR K100 UNIT/1 SC; +GABAPENTIN100 MG PO; +VANCOCIN HCL125 MG PO
[2017-11-12 13:07] LABS: HEMATOCRIT 32.8 % (38.0-50.0); MCH 28.4 PG (29.0-34.0); MCHC 30.5 G/DL (30.0-36.0); MCV 93.2 FL (86-99); PLATELET COUNT 209 K/uL (156-360); RBC DIS.WIDTH-CV 21.9 % (11.8-14.6); RBC DIS.WIDTH-SD 73.4 % (39-53); RED BLOOD COUNT 3.52 M/uL (4.00-5.50); WHITE BLOOD COUNT 13.8 K/uL (4.1-10.2)
[2017-11-12 13:17] LABS: CHLORIDE 103 mEq/L (99-109); POTASSIUM 4.1 mEq/L (3.7-5.4); SODIUM 139 mEq/L (136-147)
[2017-11-12 13:18] LABS: GLUCOSE 167 mg/dL (70-99)
[2017-11-12 13:22] LABS: CREATININE 3.4 mg/dL (0.6-1.3); GFR ESTIMATE (CALCULATED) 19 mL/min/ (58.99-99999)
[2017-11-12 13:23] LABS: UREA NITROGEN (BUN) 21 mg/dL (9-23)
[2017-11-12 13:28] LABS: TROP-I INTERPRETATION NEGATIVE; TROPONIN-I 0.05 ng/mL (0.0-0.30)
[2017-11-12] MEDS ORDERED: ANORO ELLIPTA1 EACH IH (17:02)
[2017-11-12 17:46] VITALS: BP 125/53
[2017-11-12] MEDS ORDERED: BASAGLAR K100 UNIT/1 SC (17:51)
[2017-11-12] MEDS ORDERED: IRON325 M1 PO (18:01)
[2017-11-12] MEDS ORDERED: HEPARIN SO5000 UNIT4 SC (18:10)
[2017-11-12] MEDS ORDERED: BREO ELLIPTA I1 EACH IH (18:15)
[2017-11-12] MEDS ORDERED: HUMALOG100 UNIT/2 SC (18:17)
[2017-11-12 19:27] VITALS: BP 145/65
[2017-11-12 21:10] LABS: TROP-I INTERPRETATION NEGATIVE; TROPONIN-I 0.04 ng/mL (0.0-0.30)
[2017-11-12 23:12] VITALS: BP 137/72
[2017-11-13 04:14] VITALS: BP 144/69
[2017-11-13 06:54] LABS: HEMATOCRIT 32.9 % (38.0-50.0); HEMOGLOBIN 9.6 G/DL (12.5-16.6); MCH 27.4 PG (29.0-34.0); MCHC 29.2 G/DL (30.0-36.0); PLATELET COUNT 200 K/uL (156-360); RBC DIS.WIDTH-CV 21.7 % (11.8-14.6); RBC DIS.WIDTH-SD 74.8 % (39-53); WHITE BLOOD COUNT 9.4 K/uL (4.1-10.2)
[2017-11-13 06:57] LABS: BASOPHIL (%) 0.4 % (0-1); EOSINOPHIL (%) 1.8 % (0-5); EOSINOPHIL COUNT 0.2 K/uL (0-0.3); IMMATURE GRANULOCYTE (%) 0.6 % (0.0-0.7); LYMPHOCYTE (%) 14.4 % (15-42); LYMPHOCYTE COUNT 1.4 K/uL (1.0-2.8); MONOCYTE (%) 7.4 % (3-12); MONOCYTE COUNT 0.7 K/uL (0-0.8); NEUTROPHIL (%) 75.4 % (45-76); NEUTROPHIL COUNT 7.1 K/uL (1.8-6.4)
[2017-11-13 07:13] LABS: TROP-I INTERPRETATION NEGATIVE; TROPONIN-I 0.03 ng/mL (0.0-0.30)
[2017-11-13 07:17] LABS: CHLORIDE 104 MEQ/L (99-109); CREATININE 3.9 MG/DL (0.6-1.3); GFR ESTIMATE (CALCULATED) 16 mL/min/ (58.99-99999); GLUCOSE 153 mg/dL (70-99); POTASSIUM 4.6 MEQ/L (3.7-5.4); SODIUM 141 MEQ/L (136-147); UREA NITROGEN (BUN) 26 mg/dL (9-23)
[2017-11-13 07:34] VITALS: BP 144/71
[2017-11-13 11:21] VITALS: BP 150/67
[2017-11-13 13:02] LABS: TROP-I INTERPRETATION NEGATIVE; TROPONIN-I 0.02 ng/mL (0.0-0.30)
[2017-11-13 15:34] VITALS: BP 128/62
[2017-11-13 15:55] LABS: APPEARANCE TURBID ((CLEAR)); BILIRUBIN NEGATIVE; BLOOD SMALL; COLOR YELLOW ((YELLOW)); GLUCOSE (STRIP) NEGATIVE; KETONES NEGATIVE; LEUKOCYTES MODERATE; NITRITE NEGATIVE; PROTEIN (STRIP) 100; SPECIFIC GRAVITY 1.015 (1.000-1.030); UROBILINOGEN 0.2 MG/DL (0.2-1.0)
[2017-11-13 19:53] LABS: UCUL ADDED? YES; WHITE BLOOD CELLS TNTC /HPF (0-5)
[2017-11-13 20:00] VITALS: BP 120/68
[2017-11-14 00:29] VITALS: BP 130/92
[2017-11-14 03:37] VITALS: BP 126/92
[2017-11-14 06:34] LABS: HEMATOCRIT 32.9 % (38.0-50.0); HEMOGLOBIN 9.5 G/DL (12.5-16.6); MCH 27.3 PG (29.0-34.0); MCHC 28.9 G/DL (30.0-36.0); MCV 94.5 FL (86-99); PLATELET COUNT 205 K/uL (156-360); RBC DIS.WIDTH-CV 21.2 % (11.8-14.6); RBC DIS.WIDTH-SD 72.4 % (39-53); RED BLOOD COUNT 3.48 M/uL (4.00-5.50); WHITE BLOOD COUNT 9.4 K/uL (4.1-10.2)
[2017-11-14 06:59] LABS: CHLORIDE 104 MEQ/L (99-109); GFR ESTIMATE (CALCULATED) 13 mL/min/ (58.99-99999); POTASSIUM 4.7 MEQ/L (3.7-5.4); SODIUM 138 MEQ/L (136-147); UREA NITROGEN (BUN) 31 mg/dL (9-23)
[2017-11-14 07:02] LABS: CREATININE 4.6 MG/DL (0.6-1.3); GLUCOSE 94 mg/dL (70-99)
[2017-11-14 09:29] VITALS: BP 138/65
[2017-11-14 15:19] VITALS: BP 139/65
[2017-11-14 19:56] VITALS: BP 129/65
[2017-11-14 23:45] VITALS: BP 130/58
[2017-11-15 04:00] VITALS: BP 132/72
[2017-11-15 11:47] VITALS: BP 142/68
[2017-11-15 21:16] VITALS: BP 126/62
[2017-11-16 00:33] VITALS: BP 126/70
[2017-11-16 04:16] VITALS: BP 132/64
[2017-11-16 08:11] VITALS: BP 148/76
[2017-11-16 10:09] LABS: CHLORIDE 101 MEQ/L (99-109); GFR ESTIMATE (CALCULATED) 15 mL/min/ (58.99-99999); GLUCOSE 136 mg/dL (70-99); POTASSIUM 4.4 MEQ/L (3.7-5.4); SODIUM 136 MEQ/L (136-147); UREA NITROGEN (BUN) 26 mg/dL (9-23)
[2017-11-16 10:44] LABS: HEMATOCRIT 31.2 % (38.0-50.0); HEMOGLOBIN 9.5 G/DL (12.5-16.6); MCH 28.5 PG (29.0-34.0); MCHC 30.4 G/DL (30.0-36.0); MCV 93.7 FL (86-99); PLATELET COUNT 224 K/uL (156-360); RBC DIS.WIDTH-CV 19.9 % (11.8-14.6); RBC DIS.WIDTH-SD 68.5 % (39-53); RED BLOOD COUNT 3.33 M/uL (4.00-5.50); WHITE BLOOD COUNT 8.9 K/uL (4.1-10.2)
[2017-11-16 16:08] VITALS: BP 160/88
[2017-11-16 20:30] VITALS: BP 148/67
[2017-11-17 00:32] VITALS: BP 158/72
[2017-11-17 08:28] VITALS: BP 160/74
[2017-11-17 11:16] VITALS: BP 143/75
[2017-11-20] MEDS ORDERED: ADVAIR 500/501 DISK IH (11:15)
[2017-11-20] MEDS ORDERED: NOVOLOG PE100 UNITS/ SC (11:15)
== END 2017-11-17 13:17 | DRG 291 ==
LOC: EME 11:36 → 3EAST 15:30 → EDOF 15:30 → ENRESERV 15:42 → 3EAST 17:27
PROVIDERS: Emergency Medicine; Family Medicine
PROC: 5A1D70Z Performance of Urinary Filtration, Intermittent, Less than 6 Hours Per Day (ICD-10-PCS; principal; 2017-11-14)
DX: I13.2 Hypertensive heart and chronic kidney disease with heart failure and with stage 5 chronic kidney disease, or end stage renal disease (principal); I50.23 Acute on chronic systolic (congestive) heart failure; N18.6 End stage renal disease; T82.855A Stenosis of coronary artery stent, initial encounter; Y83.1 Surgical operation with implant of artificial internal device as the cause of abnormal reaction of the patient, or of later complication, without mention of misadventure at the time of the procedure; E11.22 Type 2 diabetes mellitus with diabetic chronic kidney disease; Z99.2 Dependence on renal dialysis; I25.110 Atherosclerotic heart disease of native coronary artery with unstable angina pectoris; J44.1 Chronic obstructive pulmonary disease with (acute) exacerbation; J18.9 Pneumonia, unspecified organism; J44.0 Chronic obstructive pulmonary disease with (acute) lower respiratory infection; I95.9 Hypotension, unspecified; I25.2 Old myocardial infarction; E11.51 Type 2 diabetes mellitus with diabetic peripheral angiopathy without gangrene; D63.1 Anemia in chronic kidney disease; Z86.19 Personal history of other infectious and parasitic diseases; I25.5 Ischemic cardiomyopathy; I48.0 Paroxysmal atrial fibrillation; I48.2 Chronic atrial fibrillation; I35.0 Nonrheumatic aortic (valve) stenosis; I77.1 Stricture of artery; K21.9 Gastro-esophageal reflux disease without esophagitis; G47.33 Obstructive sleep apnea (adult) (pediatric); Z99.81 Dependence on supplemental oxygen; E66.9 Obesity, unspecified; Z68.44 Body mass index [BMI] 60.0-69.9, adult; E03.9 Hypothyroidism, unspecified; E78.5 Hyperlipidemia, unspecified; M81.0 Age-related osteoporosis without current pathological fracture; K57.90 Diverticulosis of intestine, part unspecified, without perforation or abscess without bleeding; N40.0 Benign prostatic hyperplasia without lower urinary tract symptoms; M75.32 Calcific tendinitis of left shoulder; G89.29 Other chronic pain; M79.662 Pain in left lower leg; M19.90 Unspecified osteoarthritis, unspecified site; F32.9 Major depressive disorder, single episode, unspecified; R26.2 Difficulty in walking, not elsewhere classified; Z86.718 Personal history of other venous thrombosis and embolism; Z87.11 Personal history of peptic ulcer disease; Z95.0 Presence of cardiac pacemaker; Z95.2 Presence of prosthetic heart valve; Z96.653 Presence of artificial knee joint, bilateral; Z79.4 Long term (current) use of insulin
CPT/HCPCS: 71046; 80048; 81003; 82948; 83605; 83880; 84484; 85025; 85027; 87086; 87106; 93005; 94640; 94640 76; 94799; 99281; 99285; J0881; J1450; J1644; J1815; J1940; J2997; P9047

== ENCOUNTER 2017-11-19 13:33 | Day surgery (SDC) | payer OTHER ==
[~2017-11-19] VITALS: Ht 162.6 cm; Wt 85.2 kg
[~2017-11-19 13:33] MED LIST changes: +ANORO ELLIPTA1 EACH IH; +BREO ELLIPTA I1 EACH IH; +HEPARIN SO5000 UNIT4 SC; +IRON325 M1 PO
[2017-11-19 14:39] LABS: HEMATOCRIT 39.6 % (38.0-50.0); HEMOGLOBIN 11.4 G/DL (12.5-16.6); MCH 26.9 PG (29.0-34.0); MCHC 28.8 G/DL (30.0-36.0); MCV 93.4 FL (86-99); RBC DIS.WIDTH-CV 19.4 % (11.8-14.6); RBC DIS.WIDTH-SD 66.4 % (39-53); WHITE BLOOD COUNT 8.9 K/uL (4.1-10.2)
[2017-11-19 14:46] VITALS: BP 153/64
[2017-11-19 14:47] LABS: RED BLOOD COUNT 4.24 M/uL (4.00-5.50)
[2017-11-19 14:58] LABS: CHLORIDE 99 MEQ/L (99-109); CREATININE 3.7 MG/DL (0.6-1.3); GFR ESTIMATE (CALCULATED) 17 mL/min/ (58.99-99999); GLUCOSE 153 mg/dL (70-99); SODIUM 138 MEQ/L (136-147); UREA NITROGEN (BUN) 24 mg/dL (9-23)
[2017-11-19 15:09] LABS: HEMATOLOGY COMMENT 1 SN; PLAT.SUFFICIENCY ADEQUATE
[2017-11-19 15:10] LABS: PLATELET COUNT 346 K/uL (156-360)
[2017-11-20] MEDS ORDERED: NOVOLOG PE100 UNITS/ SC (11:15)
[2017-11-20] MEDS ORDERED: ADVAIR 500/501 DISK IH (11:15)
== END 2017-11-19 19:08 ==
LOC: SDC
PROVIDERS: Surgery
DX: I13.2 Hypertensive heart and chronic kidney disease with heart failure and with stage 5 chronic kidney disease, or end stage renal disease (principal); Z53.8 Procedure and treatment not carried out for other reasons; E11.22 Type 2 diabetes mellitus with diabetic chronic kidney disease; I50.9 Heart failure, unspecified; N18.6 End stage renal disease; Z99.2 Dependence on renal dialysis; D63.1 Anemia in chronic kidney disease; I25.10 Atherosclerotic heart disease of native coronary artery without angina pectoris; J44.9 Chronic obstructive pulmonary disease, unspecified; I48.91 Unspecified atrial fibrillation; N40.0 Benign prostatic hyperplasia without lower urinary tract symptoms; E87.70 Fluid overload, unspecified; R36.9 Urethral discharge, unspecified; I25.2 Old myocardial infarction; Z86.718 Personal history of other venous thrombosis and embolism
CPT/HCPCS: 80048; 85027

== ENCOUNTER 2017-11-22 06:52 | Day surgery (SDC) | payer OTHER ==
[~2017-11-22] VITALS: Ht 162.6 cm; Wt 85.3 kg
[2017-11-22 07:47] VITALS: BP 170/91
[2017-11-22 12:32] VITALS: BP 146/76
[2017-11-22 14:15] VITALS: BP 147/56
== END 2017-11-22 14:15 | disposition home or self-care (01) ==
LOC: SDC
PROVIDERS: Surgery
PROC: 03170JD Bypass Right Brachial Artery to Upper Arm Vein with Synthetic Substitute, Open Approach (ICD-10-PCS; principal; 2017-11-22)
DX: I12.0 Hypertensive chronic kidney disease with stage 5 chronic kidney disease or end stage renal disease (principal); E11.22 Type 2 diabetes mellitus with diabetic chronic kidney disease; N18.6 End stage renal disease; Z99.2 Dependence on renal dialysis; Z79.4 Long term (current) use of insulin; Z95.0 Presence of cardiac pacemaker; E11.51 Type 2 diabetes mellitus with diabetic peripheral angiopathy without gangrene; I70.235 Atherosclerosis of native arteries of right leg with ulceration of other part of foot
CPT/HCPCS: 82948; 87641; C1768; J0690; J1644; J2720; J3010

== ENCOUNTER 2017-12-03 22:49 | Inpatient (IN) | payer OTHER ==
[~2017-12-03] VITALS: Ht 165.1 cm; Wt 85.4 kg
[2017-12-03 23:54] LABS: BASOPHIL (%) 0.3 % (0-1); BASOPHIL COUNT 0.1 K/uL (0-0.1); EOSINOPHIL (%) 0.1 % (0-5); IMMATURE GRANULOCYTE (%) 0.6 % (0.0-0.7); LYMPHOCYTE (%) 6.3 % (15-42); LYMPHOCYTE COUNT 1.2 K/uL (1.0-2.8); MCH 27.5 PG (29.0-34.0); MCV 91.5 FL (86-99); MONOCYTE (%) 6.4 % (3-12); MONOCYTE COUNT 1.2 K/uL (0-0.8); NEUTROPHIL (%) 86.3 % (45-76); NEUTROPHIL COUNT 15.9 K/uL (1.8-6.4); PLATELET COUNT 285 K/uL (156-360); RBC DIS.WIDTH-CV 18.2 % (11.8-14.6); RBC DIS.WIDTH-SD 61.1 % (39-53); RED BLOOD COUNT 4.37 M/uL (4.00-5.50); WHITE BLOOD COUNT 18.5 K/uL (4.1-10.2)
[2017-12-03 23:59] LABS: INTER. NORMALIZED RATIO 1.2
[2017-12-04 00:01] LABS: PTT 30.5 SEC (25-37)
[2017-12-04 00:06] LABS: CHLORIDE 94 mEq/L (99-109); POTASSIUM 3.9 mEq/L (3.7-5.4); SODIUM 142 mEq/L (136-147)
[2017-12-04 00:13] LABS: CREATININE 3.7 mg/dL (0.6-1.3); GFR ESTIMATE (CALCULATED) 17 mL/min/ (58.99-99999); GLUCOSE 202 mg/dL (70-99); UREA NITROGEN (BUN) 23 mg/dL (9-23)
[2017-12-04 00:18] LABS: TROP-I INTERPRETATION NEGATIVE; TROPONIN-I 0.07 ng/mL (0.0-0.30)
[2017-12-04 06:13] VITALS: BP 124/58
[2017-12-04 08:26] VITALS: BP 144/64
[2017-12-04 11:59] LABS: COMMENTS - BLOOD GASES A+C+; DEVICE NC; O2 FLOW 3.5 L/MIN; SITE LR
[2017-12-04 12:00] LABS: TOTAL RESP RATE 14 resp/min
[2017-12-04 12:03] LABS: PCO2 58 mm Hg (35-45); PO2 66 mm Hg (80-100); pH 7.41 (7.35-7.45)
[2017-12-04 12:04] LABS: BASE EXCESS 10.4 mEq/L (-3 to +3); BICARBONATE 36.8 mEq/L (22-26); CARBOXY HGB 1.5 % (0-5); METHEMOGLOBIN 0 % (0-1.5)
[2017-12-04 12:30] VITALS: BP 120/68
[2017-12-04 15:43] VITALS: BP 120/78
[2017-12-04 19:38] VITALS: BP 124/56
[2017-12-04 23:13] VITALS: BP 119/61
[2017-12-05 03:46] VITALS: BP 128/59
[2017-12-05 05:49] LABS: BASOPHIL (%) 0.4 % (0-1); BASOPHIL COUNT 0.1 K/uL (0-0.1); EOSINOPHIL COUNT 0.3 K/uL (0-0.3); HEMOGLOBIN 10.5 G/DL (12.5-16.6); IMMATURE GRANULOCYTE (%) 0.6 % (0.0-0.7); LYMPHOCYTE (%) 8.5 % (15-42); LYMPHOCYTE COUNT 1.4 K/uL (1.0-2.8); MCH 26.7 PG (29.0-34.0); MCHC 29.2 G/DL (30.0-36.0); MCV 91.6 FL (86-99); MONOCYTE (%) 5.9 % (3-12); NEUTROPHIL (%) 82.6 % (45-76); NEUTROPHIL COUNT 13.7 K/uL (1.8-6.4); PLATELET COUNT 240 K/uL (156-360); RBC DIS.WIDTH-CV 18.1 % (11.8-14.6); RBC DIS.WIDTH-SD 61.1 % (39-53); RED BLOOD COUNT 3.93 M/uL (4.00-5.50); WHITE BLOOD COUNT 16.5 K/uL (4.1-10.2)
[2017-12-05 06:12] LABS: CHLORIDE 99 MEQ/L (99-109); GFR ESTIMATE (CALCULATED) 13 mL/min/ (58.99-99999); MAGNESIUM 1.7 mg/dl (1.3-2.7); PHOSPHORUS 5.5 mg/dL (2.5-4.9); POTASSIUM 3.7 MEQ/L (3.7-5.4); SODIUM 143 MEQ/L (136-147); UREA NITROGEN (BUN) 31 mg/dL (9-23)
[2017-12-05 06:16] LABS: CREATININE 4.6 MG/DL (0.6-1.3); GLUCOSE 107 mg/dL (70-99)
[2017-12-05 07:00] LABS: VANCOMYCIN, TROUGH 16.2 MCG/ML (10-20)
[2017-12-05 07:54] LABS: BASOPHIL (%) 0.6 % (0-1); BASOPHIL COUNT 0.1 K/uL (0-0.1); EOSINOPHIL COUNT 0.3 K/uL (0-0.3); HEMATOCRIT 34.7 % (38.0-50.0); HEMOGLOBIN 10.4 G/DL (12.5-16.6); IMMATURE GRANULOCYTE (%) 0.4 % (0.0-0.7); LYMPHOCYTE COUNT 1.1 K/uL (1.0-2.8); MCH 27.2 PG (29.0-34.0); MCV 90.6 FL (86-99); MONOCYTE (%) 5.4 % (3-12); MONOCYTE COUNT 0.9 K/uL (0-0.8); NEUTROPHIL (%) 84.6 % (45-76); NEUTROPHIL COUNT 13.7 K/uL (1.8-6.4); PLATELET COUNT 242 K/uL (156-360); RBC DIS.WIDTH-CV 18.2 % (11.8-14.6); RBC DIS.WIDTH-SD 60.3 % (39-53); RED BLOOD COUNT 3.83 M/uL (4.00-5.50); WHITE BLOOD COUNT 16.2 K/uL (4.1-10.2)
[2017-12-05 08:05] LABS: ALBUMIN 2.7 G/DL (3.2-4.8); CHLORIDE 98 MEQ/L (99-109); POTASSIUM 3.7 MEQ/L (3.7-5.4); SODIUM 142 MEQ/L (136-147)
[2017-12-05 08:11] LABS: CREATININE 4.7 MG/DL (0.6-1.3); GFR ESTIMATE (CALCULATED) 13 mL/min/ (58.99-99999); GLUCOSE 133 mg/dL (70-99); PHOSPHORUS 4.9 mg/dL (2.5-4.9); UREA NITROGEN (BUN) 32 mg/dL (9-23)
[2017-12-05] MEDS ORDERED: FERROUS SULFAT325 MG PO (09:52)
[2017-12-05] MEDS ORDERED: VANCOMYCIN125 MG/2.5 PO (09:55)
[2017-12-05] MEDS ORDERED: SERTRALINE HCL25 MG PO (09:57)
[2017-12-05] MEDS ORDERED: GABAPENTIN100 MG PO (09:57)
[2017-12-05] MEDS ORDERED: HYDROCODON-ACE1 EAC7 PO (10:00)
[2017-12-05] MEDS ORDERED: PHENERGAN25 MG PR (10:01)
[2017-12-05] MEDS ORDERED: MILK OF MAGN PO (10:02)
[2017-12-05 11:51] VITALS: BP 142/69
[2017-12-05 16:54] VITALS: BP 143/62
[2017-12-05 23:25] VITALS: BP 143/56
[2017-12-06 03:18] VITALS: BP 122/60
[2017-12-06 06:44] LABS: HEMATOCRIT 36.6 % (38.0-50.0); HEMOGLOBIN 10.6 G/DL (12.5-16.6); MCH 26.5 PG (29.0-34.0); MCV 91.5 FL (86-99); PLATELET COUNT 243 K/uL (156-360); RBC DIS.WIDTH-CV 17.8 % (11.8-14.6); WHITE BLOOD COUNT 10.5 K/uL (4.1-10.2)
[2017-12-06 07:07] LABS: CHLORIDE 98 MEQ/L (99-109); GFR ESTIMATE (CALCULATED) 20 mL/min/ (58.99-99999); GLUCOSE 103 mg/dL (70-99); POTASSIUM 3.5 MEQ/L (3.7-5.4); SODIUM 139 MEQ/L (136-147); UREA NITROGEN (BUN) 17 mg/dL (9-23)
[2017-12-06 07:09] LABS: CREATININE 3.2 MG/DL (0.6-1.3)
[2017-12-06 08:23] VITALS: BP 124/58
[2017-12-06 15:57] VITALS: BP 117/60
[2017-12-07 03:15] VITALS: BP 101/51
[2017-12-07 07:46] VITALS: BP 144/68
[2017-12-07 09:25] LABS: HEMATOCRIT 36.5 % (38.0-50.0); HEMOGLOBIN 10.8 G/DL (12.5-16.6); MCH 26.9 PG (29.0-34.0); MCHC 29.6 G/DL (30.0-36.0); PLATELET COUNT 256 K/uL (156-360); RBC DIS.WIDTH-CV 17.7 % (11.8-14.6); RBC DIS.WIDTH-SD 59.1 % (39-53); RED BLOOD COUNT 4.01 M/uL (4.00-5.50); WHITE BLOOD COUNT 8.6 K/uL (4.1-10.2)
[2017-12-07 09:49] LABS: CHLORIDE 97 MEQ/L (99-109); GFR ESTIMATE (CALCULATED) 15 mL/min/ (58.99-99999); POTASSIUM 3.8 MEQ/L (3.7-5.4); SODIUM 139 MEQ/L (136-147); UREA NITROGEN (BUN) 25 mg/dL (9-23)
[2017-12-07 10:01] LABS: CREATININE 4.2 MG/DL (0.6-1.3); GLUCOSE 250 mg/dL (70-99)
[2017-12-07 11:38] LABS: HEPATITIS B SURFACE ANTIBODY Nonreactive; HEPATITIS B SURFACE ANTIGEN Nonreactive
[2017-12-07 16:17] VITALS: BP 167/72
[2017-12-07 20:09] VITALS: BP 143/71
[2017-12-08 00:23] VITALS: BP 165/73
[2017-12-08 04:54] VITALS: BP 149/64
[2017-12-08 06:54] LABS: HEMATOCRIT 36.9 % (38.0-50.0); HEMOGLOBIN 10.8 G/DL (12.5-16.6); MCH 26.7 PG (29.0-34.0); MCHC 29.3 G/DL (30.0-36.0); MCV 91.3 FL (86-99); PLATELET COUNT 239 K/uL (156-360); RBC DIS.WIDTH-CV 17.6 % (11.8-14.6); RBC DIS.WIDTH-SD 59.3 % (39-53); RED BLOOD COUNT 4.04 M/uL (4.00-5.50); WHITE BLOOD COUNT 8.6 K/uL (4.1-10.2)
[2017-12-08 07:30] LABS: CHLORIDE 100 MEQ/L (99-109); GFR ESTIMATE (CALCULATED) 24 mL/min/ (58.99-99999); POTASSIUM 3.6 MEQ/L (3.7-5.4); SODIUM 141 MEQ/L (136-147); UREA NITROGEN (BUN) 14 mg/dL (9-23)
[2017-12-08 07:39] LABS: GLUCOSE 110 mg/dL (70-99)
[2017-12-08 07:40] LABS: CREATININE 2.7 MG/DL (0.6-1.3)
[2017-12-08 07:53] VITALS: BP 141/64
[2017-12-08 11:04] VITALS: BP 116/54
[2017-12-08] MEDS ORDERED: ZOLOFT50 MG PO (14:09)
[2017-12-08 20:14] VITALS: BP 133/64
[2017-12-08 23:25] VITALS: BP 168/68
[2017-12-09 04:50] VITALS: BP 113/57
[2017-12-09 08:15] VITALS: BP 152/68
[2017-12-09 19:18] VITALS: BP 157/108
[2017-12-10 00:27] VITALS: BP 147/74
[2017-12-10 03:06] VITALS: BP 135/63
[2017-12-10 07:37] VITALS: BP 146/76
[2017-12-10 08:34] LABS: BASOPHIL (%) 0.7 % (0-1); BASOPHIL COUNT 0.1 K/uL (0-0.1); EOSINOPHIL (%) 2.5 % (0-5); EOSINOPHIL COUNT 0.2 K/uL (0-0.3); HEMATOCRIT 38.7 % (38.0-50.0); HEMOGLOBIN 11.4 G/DL (12.5-16.6); IMMATURE GRANULOCYTE (%) 0.8 % (0.0-0.7); LYMPHOCYTE (%) 18.3 % (15-42); LYMPHOCYTE COUNT 1.6 K/uL (1.0-2.8); MCHC 29.5 G/DL (30.0-36.0); MCV 91.5 FL (86-99); MONOCYTE (%) 7.5 % (3-12); MONOCYTE COUNT 0.7 K/uL (0-0.8); NEUTROPHIL (%) 70.2 % (45-76); NEUTROPHIL COUNT 6.1 K/uL (1.8-6.4); PLATELET COUNT 246 K/uL (156-360); RBC DIS.WIDTH-CV 17.6 % (11.8-14.6); RBC DIS.WIDTH-SD 59.4 % (39-53); RED BLOOD COUNT 4.23 M/uL (4.00-5.50); WHITE BLOOD COUNT 8.7 K/uL (4.1-10.2)
[2017-12-10 08:51] LABS: ALBUMIN 2.9 G/DL (3.2-4.8); CHLORIDE 101 MEQ/L (99-109); CREATININE 4.3 MG/DL (0.6-1.3); GFR ESTIMATE (CALCULATED) 14 mL/min/ (58.99-99999); GLUCOSE 211 mg/dL (70-99); POTASSIUM 3.3 MEQ/L (3.7-5.4); SODIUM 143 MEQ/L (136-147); UREA NITROGEN (BUN) 24 mg/dL (9-23)
[2017-12-10 12:46] VITALS: BP 122/54
[2017-12-10 19:12] VITALS: BP 160/71
[2017-12-10 23:08] VITALS: BP 139/65
[2017-12-11 03:14] VITALS: BP 157/71
[2017-12-11 07:50] VITALS: BP 176/76
[2017-12-11 10:42] VITALS: BP 172/74
[2017-12-11 16:24] VITALS: BP 134/87
[2017-12-11 20:03] VITALS: BP 134/60
[2017-12-11 23:59] VITALS: BP 123/60
[2017-12-12 04:42] VITALS: BP 146/65
[2017-12-12 08:28] LABS: HEMOGLOBIN 11.6 G/DL (12.5-16.6); MCH 26.7 PG (29.0-34.0); MCHC 29.7 G/DL (30.0-36.0); MCV 89.7 FL (86-99); PLATELET COUNT 237 K/uL (156-360); RBC DIS.WIDTH-CV 18.1 % (11.8-14.6); RBC DIS.WIDTH-SD 59.7 % (39-53); RED BLOOD COUNT 4.35 M/uL (4.00-5.50); WHITE BLOOD COUNT 10.7 K/uL (4.1-10.2)
[2017-12-12 08:41] LABS: ALBUMIN 3.1 G/DL (3.2-4.8); CHLORIDE 98 MEQ/L (99-109); POTASSIUM 3.5 MEQ/L (3.7-5.4); SODIUM 138 MEQ/L (136-147)
[2017-12-12 08:47] LABS: GFR ESTIMATE (CALCULATED) 15 mL/min/ (58.99-99999); GLUCOSE 175 mg/dL (70-99); PHOSPHORUS 3.6 mg/dL (2.5-4.9); UREA NITROGEN (BUN) 20 mg/dL (9-23)
[2017-12-12 12:05] VITALS: BP 151/66
[2017-12-17] MEDS ORDERED: HUMALOG100 UNIT/1 SC (15:01)
[2017-12-17] MEDS ORDERED: MAALOX MAXIMUM355 ML PO (15:03)
== END 2017-12-12 13:00 | DRG 981 ==
LOC: EME 22:49 → EDOF 12-04 03:36 → 3EAST 12-04 03:36 → ENRESERV 12-04 03:37 → CANRESERV 12-04 03:37 → ENRESERV 12-04 04:25 → 3EAST 12-04 05:13
PROVIDERS: Emergency Medicine; Family Medicine; Internal Medicine; Internal Medicine Nephrology
PROC: 5A1D70Z Performance of Urinary Filtration, Intermittent, Less than 6 Hours Per Day (ICD-10-PCS; principal; 2017-12-05)
PROC: 05PY03Z Removal of Infusion Device from Upper Vein, Open Approach (ICD-10-PCS; 2017-12-10)
DX: J44.0 Chronic obstructive pulmonary disease with (acute) lower respiratory infection (principal); J18.9 Pneumonia, unspecified organism; R41.82 Altered mental status, unspecified; T42.6X5A Adverse effect of other antiepileptic and sedative-hypnotic drugs, initial encounter; N17.9 Acute kidney failure, unspecified; R44.3 Hallucinations, unspecified; G30.9 Alzheimer's disease, unspecified; F02.80 Dementia in other diseases classified elsewhere, unspecified severity, without behavioral disturbance, psychotic disturbance, mood disturbance, and anxiety; F05 Delirium due to known physiological condition; I13.2 Hypertensive heart and chronic kidney disease with heart failure and with stage 5 chronic kidney disease, or end stage renal disease; I50.9 Heart failure, unspecified; E11.22 Type 2 diabetes mellitus with diabetic chronic kidney disease; N18.6 End stage renal disease; E78.5 Hyperlipidemia, unspecified; K21.9 Gastro-esophageal reflux disease without esophagitis; I25.10 Atherosclerotic heart disease of native coronary artery without angina pectoris; E11.51 Type 2 diabetes mellitus with diabetic peripheral angiopathy without gangrene; N40.0 Benign prostatic hyperplasia without lower urinary tract symptoms; K59.09 Other constipation; N25.81 Secondary hyperparathyroidism of renal origin; D63.1 Anemia in chronic kidney disease; E11.42 Type 2 diabetes mellitus with diabetic polyneuropathy; I48.2 Chronic atrial fibrillation; I69.398 Other sequelae of cerebral infarction; R53.1 Weakness; F32.9 Major depressive disorder, single episode, unspecified; F41.9 Anxiety disorder, unspecified; Z66 Do not resuscitate; Z99.2 Dependence on renal dialysis; Z87.11 Personal history of peptic ulcer disease; Z95.5 Presence of coronary angioplasty implant and graft; I25.2 Old myocardial infarction; Z95.0 Presence of cardiac pacemaker; Z79.4 Long term (current) use of insulin; Z91.041 Radiographic dye allergy status; Z74.01 Bed confinement status
CPT/HCPCS: 36600; 70450; 71045; 71250; 74176; 80048; 80048 91; 80069; 80202; 81003; 82140; 82803; 82948; 83605; 83735; 84100; 84484; 85025; 85025 91; 85027; 85610; 85730; 86706; 87040; 87086; 87340; 93005; 94640; 94640 76; 94760; 94799; 99202; 99281; 99285; C1755; J0692; J1644; J1815; J3370; J7050; P9047

== ENCOUNTER 2017-12-18 08:04 | Day surgery (SDC) | payer OTHER ==
[~2017-12-18] VITALS: Ht 167.6 cm; Wt 75.0 kg
[~2017-12-18 08:04] MED LIST changes: +HEPARIN SO5000 UNIT4 IM; -HEPARIN SO5000 UNIT4 SC; +HUMALOG100 UNIT/1 SC; +HYDROCODON-ACE1 EAC7 PO; +MAALOX MAXIMUM355 ML PO; +MILK OF MAGN PO; +PHENERGAN25 MG PR; +VANCOMYCIN125 MG/2.5 PO
== END 2017-12-18 10:17 ==
LOC: CATH 08:04
PROVIDERS: Surgery
DX: T82.868A Thrombosis due to vascular prosthetic devices, implants and grafts, initial encounter (principal); I12.0 Hypertensive chronic kidney disease with stage 5 chronic kidney disease or end stage renal disease; E11.22 Type 2 diabetes mellitus with diabetic chronic kidney disease; N18.6 End stage renal disease; Z99.2 Dependence on renal dialysis; Z79.4 Long term (current) use of insulin; E11.621 Type 2 diabetes mellitus with foot ulcer; L97.529 Non-pressure chronic ulcer of other part of left foot with unspecified severity; Z79.02 Long term (current) use of antithrombotics/antiplatelets; I25.10 Atherosclerotic heart disease of native coronary artery without angina pectoris
CPT/HCPCS: 82948; 87641; C1725; C1757; C1769; C1874; C1894; C2628; J0690; J1200; J1644; J2250; J2930; J3010; S0020; S0028

== ENCOUNTER 2017-12-24 07:52 | Inpatient (IN) | payer OTHER ==
[~2017-12-24] VITALS: Ht 167.6 cm; Wt 72.0 kg
[2017-12-24 08:22] LABS: BASOPHIL (%) 0.2 % (0-1); BASOPHIL COUNT 0.1 K/uL (0-0.1); EOSINOPHIL (%) 0 % (0-5); IMMATURE GRANULOCYTE (%) 0.7 % (0.0-0.7); LYMPHOCYTE (%) 2.8 % (15-42); LYMPHOCYTE COUNT 0.8 K/uL (1.0-2.8); MCHC 31.3 G/DL (30.0-36.0); MCV 89.7 FL (86-99); MONOCYTE (%) 4.7 % (3-12); MONOCYTE COUNT 1.3 K/uL (0-0.8); NEUTROPHIL (%) 91.6 % (45-76); NEUTROPHIL COUNT 25.7 K/uL (1.8-6.4); NRBC (%) 0.2 /100 WBC (0-0); PLATELET COUNT 214 K/uL (156-360); RBC DIS.WIDTH-CV 19.9 % (11.8-14.6); RBC DIS.WIDTH-SD 63.6 % (39-53); RED BLOOD COUNT 4.46 M/uL (4.00-5.50); WHITE BLOOD COUNT 28.1 K/uL (4.1-10.2)
[2017-12-24 08:23] LABS: HEMOGLOBIN 12.5 G/DL (12.5-16.6)
[2017-12-24 08:35] LABS: CHLORIDE 91 mEq/L (99-109); POTASSIUM 4.6 mEq/L (3.7-5.4); SODIUM 142 mEq/L (136-147)
[2017-12-24 08:36] LABS: GLUCOSE 166 mg/dL (70-99)
[2017-12-24 08:37] LABS: INTER. NORMALIZED RATIO 1.9
[2017-12-24 08:40] LABS: CREATININE 5.8 mg/dL (0.6-1.3); GFR ESTIMATE (CALCULATED) 10 mL/min/ (58.99-99999); PTT 28.9 SEC (25-37)
[2017-12-24 08:49] LABS: TROP-I INTERPRETATION NEGATIVE; TROPONIN-I 0.09 ng/mL (0.0-0.30)
[2017-12-24 09:25] LABS: TOTAL PROTEIN 5.5 g/dL (6.4-8.3)
[2017-12-24 09:27] LABS: TOTAL BILIRUBIN 0.5 mg/dL (0.0-1.0)
[2017-12-24 09:28] LABS: ALKALINE PHOSPHATASE 94 IU/L (3-129)
[2017-12-24 09:29] LABS: UREA NITROGEN (BUN) 75 mg/dL (9-23)
[2017-12-24 09:30] LABS: AST (GOT) 12 IU/L (2-34); DIRECT BILIRUBIN 0.3 mg/dL (0.0-0.3)
[2017-12-24 09:31] LABS: ALT (GPT) < 3 IU/L (3-49); LIPASE 15 U/L (1.0-51.0)
[2017-12-24 10:24] LABS: ALBUMIN 3.1 G/DL (3.2-4.8)
[2017-12-24 14:07] VITALS: BP 119/54
[2017-12-24] MEDS ORDERED: TYLENOL REGULA325 MG PO (14:31)
[2017-12-24 15:37] LABS: SITE DIALYSIS PORT
[2017-12-24 15:38] LABS: BASE EXCESS 1.3 mEq/L (-3 to +3); BICARBONATE 28.4 mEq/L (22-26); CARBOXY HGB 1.6 % (0-5); DEVICE AMBUBAG; FI02 100 %; METHEMOGLOBIN 0.9 % (0-1.5); PCO2 59 mm Hg (35-45); PO2 193 mm Hg (80-100); pH 7.29 (7.35-7.45)
[2017-12-24 16:26] LABS: COMMENTS - BLOOD GASES C+; DEVICE VENT; FI02 100 %; MECHANICAL RATE 18 resp/min; MODE AC; PCO2 45 mm Hg (35-45); PEEP 5 CM/H20; PO2 71 mm Hg (80-100); SITE RF; TIDAL VOLUME 420 ML; TOTAL RESP RATE 23 resp/min; pH 7.23 (7.35-7.45)
[2017-12-24 16:27] LABS: BASE EXCESS -8.3 mEq/L (-3 to +3); BICARBONATE 18.8 mEq/L (22-26); CARBOXY HGB 1.8 % (0-5); METHEMOGLOBIN 0.4 % (0-1.5); O2 SATURATION (CALCULATED) 9.39 % (95-99)
[2017-12-24 16:54] LABS: HEMATOCRIT 40.6 % (38.0-50.0); HEMOGLOBIN 12.1 G/DL (12.5-16.6)
== END 2017-12-24 19:25 | DRG 871 ==
LOC: EME 07:52 → EDOF 12:07 → ENRESERV 12:34 → CANRESERV 12:57 → ENRESERV 15:49 → CANRESERV 15:49 → 4WEST 15:52 → ENRESERV 15:52 → 4WEST 19:25
PROVIDERS: Emergency Medicine; Family Medicine; Internal Medicine Critical Care Medicine
DX: A41.9 Sepsis, unspecified organism (principal); J44.0 Chronic obstructive pulmonary disease with (acute) lower respiratory infection; J18.9 Pneumonia, unspecified organism; E87.2 Acidosis; I46.9 Cardiac arrest, cause unspecified; I48.91 Unspecified atrial fibrillation; J95.811 Postprocedural pneumothorax; J96.00 Acute respiratory failure, unspecified whether with hypoxia or hypercapnia; R57.9 Shock, unspecified; Z66 Do not resuscitate; Z51.5 Encounter for palliative care; I13.2 Hypertensive heart and chronic kidney disease with heart failure and with stage 5 chronic kidney disease, or end stage renal disease; I50.9 Heart failure, unspecified; E11.22 Type 2 diabetes mellitus with diabetic chronic kidney disease; N18.6 End stage renal disease; N25.81 Secondary hyperparathyroidism of renal origin; D64.9 Anemia, unspecified; E78.5 Hyperlipidemia, unspecified; K21.9 Gastro-esophageal reflux disease without esophagitis; F32.9 Major depressive disorder, single episode, unspecified; E03.9 Hypothyroidism, unspecified; I25.10 Atherosclerotic heart disease of native coronary artery without angina pectoris; Z95.5 Presence of coronary angioplasty implant and graft; I25.2 Old myocardial infarction; Z99.2 Dependence on renal dialysis; Z95.0 Presence of cardiac pacemaker; Z79.4 Long term (current) use of insulin; Z91.041 Radiographic dye allergy status; Z95.2 Presence of prosthetic heart valve
CPT/HCPCS: 31500; 36600; 71045; 74176; 76705; 80048; 80076; 82803; 83605; 83690; 84484; 85014; 85018; 85025; 85610; 85730; 87040; 87070; 87077; 87186; 87205; 87641; 93005; 94002; 99281; 99285; J0461; J1265; J2270; J2543; J3370; J7030; J7040; J7050; J7070